=== PATIENT | male | born 1985 | race Caucasian/White ===

== ENCOUNTER → 2017-02-18 | Outpatient (CLI) | payer OTHER ==
[~2017-02-18] MED LIST: DEXT30TA7 PO; DEXTSYP41 PO; PROP80TA2 PO
[2017-02-18 17:16] LABS: BASO % 0.1 %; BASO ABS # 0.01 K/uL (0-0.2); COMPLETE YES; EOS % 2.6 %; HEMATOCRIT 48.9 % (42-52); IG% 0.2 %; LYMPH % 26.1 %; LYMPH ABS # 2.21 K/uL (1.2-3.4); MEAN CELL VOLUME 87.5 fL (80-100); MEAN CORPUSCULAR HEMOGLOBIN 30.2 pg (25-34); MEAN CORPUSCULAR HGB CONC 34.6 g/dl (32-36); MEAN PLATELET VOLUME 8.3 fL (7.4-10.4); MONO % 9.9 %; NEUT % 61.1 %; PLATELET COUNT 255 K/uL (130-400); RED BLOOD COUNT 5.59 M/uL (4.7-6.1); WHITE BLOOD COUNT 8.47 K/uL (4.8-10.8)
[2017-02-18 17:34] LABS: ALT/SGPT 52 U/L (12-78); AST/SGOT 27 U/L (15-37); BLOOD UREA NITROGEN 9 mg/dl (7-18); BUN/CREATININE RATIO 10.4 (10-20); CALCIUM 9.1 mg/dl (8.5-10.1); CARBON DIOXIDE 29 mmol/L (21-32); CHLORIDE 109 mmol/L (98-107); CREATININE 0.83 mg/dl (0.60-1.40); GLUCOSE 88 mg/dl (70-99); POTASSIUM 4.3 mmol/L (3.5-5.1); SODIUM 143 mmol/L (136-145)
[2017-02-18 17:45] LABS: ALB/GLOB RATIO 1.4 (0.9-2); ALKALINE PHOSPHATASE 112 U/L (45-117); THYROID STIMULATING HORMONE 0.646 uIu/ml (0.300-4.500)
== END | disposition home or self-care (01) ==
LOC: C.LABPVFM 15:02
PROVIDERS: ATTEND Neuromusculoskeletal Medicine & OMM
DX: Z00.00 Encounter for general adult medical examination without abnormal findings (principal); R26.89 Other abnormalities of gait and mobility; R47.9 Unspecified speech disturbances

== ENCOUNTER → 2017-02-22 | Outpatient (CLI) | payer OTHER ==
--- NOTE | 2017-02-22 11:44 | DIAGNOSTIC IMAGING REPORT ---
CT OF THE HEAD WITHOUT CONTRAST CLINICAL HISTORY: Speech abnormality. Loss of balance. Gait disturbance. COMPARISON STUDY: Head CT May 03, 2016. CT DOSE: 729.78 mGycm TECHNIQUE: Helical axial images of the head were obtained without IV contrast. Automated exposure control was utilized for the study. A dose lowering technique was utilized adhering to the principles of ALARA. FINDINGS: No acute intracranial hemorrhage, midline shift or mass effect is present. Ventricular system is normal with the exception of mild dilatation of the fourth ventricle. Basilar cisterns are patent. There are no extra-axial collections. There is apparent symmetric hypodensity within the white matter of the bilateral cerebellar hemispheres with volume loss. There are no findings to suggest acute dural sinus thrombosis or acute territorial infarct. There is mild polypoid mucosal thickening of the sinuses. Note is made of trace fluid within the left mastoid air cells. There are no significant calvarial abnormalities. Orbits are unremarkable. IMPRESSION: 1. No acute intracranial findings. 2. Apparent symmetric hypodensities within the white matter of the bilateral cerebellar hemispheres with volume loss. While this could be artifactual, nonspecific cerebellar atrophy may be present and an MRI of the brain could be obtained. Electronically signed by: Deonte Mendoza M.D. 02/22/2017 11:43 AM Dictated Date/Time: 02/22/2017 11:22 AM
== END | disposition home or self-care (01) ==
LOC: C.CTS 11:09
PROVIDERS: ATTEND Neuromusculoskeletal Medicine & OMM
DX: M48.00 Spinal stenosis, site unspecified (principal); R26.9 Unspecified abnormalities of gait and mobility; R26.89 Other abnormalities of gait and mobility; R47.9 Unspecified speech disturbances

== ENCOUNTER → 2017-03-12 | Outpatient (CLI) | payer OTHER ==
[~2017-03-12] MED LIST changes: +GADAVIST IV PRN
--- NOTE | 2017-03-12 19:21 | DIAGNOSTIC IMAGING REPORT ---
BRAIN COMBO CLINICAL HISTORY: R47.9 Speech [id number] Loss of [id number] Abnormal heal COMPARISON STUDY: CT 02/22/2017 TECHNIQUE: Utilizing a 1.5 Nannette magnet and dedicated coil, multiplanar, multiecho imaging of the brain was performed pre and postcontrast administration. IV administration of 6.5 mL of Gadavist contrast was uneventful. FINDINGS: Diffusion-weighted images are negative for an acute ischemic insult. Coronal FLAIR images demonstrate asymmetric increase in deep white matter signal of the cerebellar hemispheres bilaterally. Signal characteristics of the cerebral hemispheres are unremarkable. The optic radiations appear intact. Postcontrast images are considered negative for an enhancing lesion. Internal artery canals are symmetric. Sella and parasellar regions are unremarkable. IMPRESSION: 1. No evidence for an acute ischemic event. 2. Moderate symmetric deep white matter cerebellar atrophy 3. No evidence for abnormal postcontrast enhancement. 4. Remainder the study is negative. 5. Normal internal auditory canals. The above report was generated using voice recognition software. It may contain grammatical, syntax or spelling errors. Electronically signed by: Angel Serrano M.D. 03/12/2017 7:20 PM Dictated Date/Time: 03/12/2017 7:14 PM
== END | disposition home or self-care (01) ==
LOC: C.MRI 17:58
PROVIDERS: ATTEND Neuromusculoskeletal Medicine & OMM
DX: R26.89 Other abnormalities of gait and mobility (principal); R47.9 Unspecified speech disturbances; R93.0 Abnormal findings on diagnostic imaging of skull and head, not elsewhere classified; G31.9 Degenerative disease of nervous system, unspecified

== ENCOUNTER 2018-10-09 17:16 | Inpatient (IN) ==
[2018-10-09 18:58] LABS: Basophils # (auto) 0.02 K/uL (0-0.2); Basophils % (auto) 0.2 %; Eosinophils # (auto) 0.19 K/uL (0-0.5); Eosinophils % (auto) 1.4 %; Hematocrit (blood only) 46.8 % (42-52); Hemoglobin 17.3 g/dL (14.0-18.0); Immature Granulocytes # (auto) 0.03 K/uL (0.00-0.02); Immature Granulocytes % (auto) 0.2 %; Lymphocytes # (auto) 1.46 K/uL (1.2-3.4); Mean Platelet Volume 8.2 fL (7.4-10.4); Monocytes # (auto) 1.25 K/uL (0.11-0.59); Monocytes % (auto) 9.4 %; Neutrophils # (auto) 10.32 K/uL (1.4-6.5); Neutrophils % (auto) 77.8 %; Platelet Count 189 K/uL (130-400); RDW Coefficient of Variation 12.7 % (11.5-14.5); RDW Standard Deviation 39.8 fL (36.4-46.3); Red Blood Count 5.44 M/uL (4.7-6.1); White Blood Count 13.27 K/uL (4.8-10.8)
--- NOTE | 2018-10-09 19:09 | Emergency Department Note ---
Entered by Ravi Zavala acting as a scribe for ED Provider Note CHIEF COMPLAINT: Weakness HISTORY OF PRESENT ILLNESS: The patient is a 32 year old male who presents to the ED with complaints of worsening weakness over the past couple of months, per his father. He also has left foot pain and swelling that is a result of falling down the steps. As a results of these symptoms the patient fell out of bed this morning and had a very difficult time getting dressed. His father also mentioned that he could not stand by himself today. The patient has had speech and balance problems for the past 2 years, however he has been falling more recently. He has seen a neurologist and was referred to Dr. Delatorre - [facility] who said he has issues within his cerebellum and Gu[place]an-[place] syndrome which causes him to have elevated bilirubin levels. The patient also takes 2 Sinemet a day but his father said he has not noticed any improvement since starting the medication. The patient also has been going to physical therapy for the past 9 months and his therapist said he is getting worse. His father notes Dr. Delatorre agreed to see him in October but the patient does need to navigate through a house with 5 steps and does not use a cane. Pt denies LOC, headache, fevers, chills, diaphoresis, visual changes, neck pain, chest pain, breathing difficulties, nausea, vomiting, abdominal pain, back pain, melena, hematochezia, urinary symptoms, numbness, lymphadenopathy, rash, or other complaints. REVIEW OF SYSTEMS: See HPI for pertinent positives and negatives. A total of ten systems were reviewed and were otherwise negative. PMHx/PSHx: Aspergers syndrome, PNA, Cerebellar impairment SOCIAL HISTORY: Patient lives at home. PHYSICAL EXAM: GENERAL: Awake, alert, well-appearing, in no distress HENT: Normocephalic, atraumatic. Oropharynx unremarkable. EYES: Normal conjunctiva. Some scleral icterus. NECK: Inspection normal. Non-tender. Supple. No nuchal rigidity. FROM. No ma sses. RESPIRATORY: Clear to auscultation. No wheezes. No rales. Normal respiratory effort. CARDIAC: Normal rate. Normal rhythm. No murmurs. No rubs. Extremities warm and well perfused. Pulses equal. No JVD. GI: Soft, non-distended. No tenderness to palpation. No rebound or guarding. No masses. RECTAL: Deferred. MUSCULOSKELETAL: Atraumatic. Chest examination reveals no tenderness. The back is symmetrical on inspection without obvious abnormality. There is no CVA tenderness to palpation. No joint edema. LOWER EXTREMITIES: Calves are equal size bilaterally. Mild tenderness to proximal fibula. Swelling and bruising over the lateral dorsal aspect of the left foot. Bruising and tenderness noted around the bases of digits 3,4 and 5. No discoloration. NEURO: Normal sensorium. No sensory deficits noted. Abnormal rapid alternating movements and inability to perform the heel to hamm correctly. Speech was thick but coherent. SKIN: No rash noted. Subtle jaundice noted. EMERGENCY DEPARTMENT COURSE: 1819: Past medical records reviewed. The patient was evaluated in room A12A, and a complete history and physical examination were performed. 1934: I updated the patient and his father on lab results. 1956: I updated the patient and his father on the Xray results. Dr. Derick Leavitt was paged. 2009: I spoke to Dr. Derick Leavitt about the patient's case and he recommended putting him in a boot. 2042: I spoke with the patient and family and they would feel more comfortable having the patient stay in the hospital due to his current condition and not having arrangments at home. 2119: I spoke to Dr. Yadav - [facility] Hospitalist about the patient's case and she is going to accept him for further evaluation. MEDICAL DECISION MAKING: Prior records/ancillary studies reviewed. MRI from 2017 showed moderate cerebellar atrophy. Nursing notes reviewed and agree them. Additional history obtained from patient's father. The patient's history was concerning for progressive weakness, falls, and injury to his left foot today. Differential diagnosis: Etiologies such as sprain, fracture, dislocation, metabolic, infection, hypo/hyperglycemia, electrolyte abnormalities, cardiac sources, intracerebral event, toxicologic, neurologic, as well as others were entertained. Physical examination: As above. ER treatment provided: IV Lock Patient declined analgesia On reassessment the patient felt better. Diagnostics interpretation by me: ECG: Normal without acute ischemic change. No dysrhythmias. The labs revealed an unremarkable CBC and chemistry panel. LFTs reveal bilirubin of 5.8. This was slightly higher than prior values. Imaging studies: CT scan of the head was performed. There was evidence of cerebellar degeneration however no significant changes were noted per radiology. X-ray imaging of the left foot and ankle reveal metatarsal fractures. X-ray imaging of the left knee was negative. No proximal fibular head tenderness or joint line abnormalities. Patient is very unsteady. He is having difficulty standing. I did consult with Dr. Sepulveda of orthopedics. He recommended a fracture boot. I discussed this with the patient initially with plans for discharge. The patient's father was present. Patient has an undiagnosed cerebellar neurologic problem. He has been declining. He has significant difficulty getting up. He is very off balance and now has a fractured foot. I discussed coming into the hospital for PT and OT consultation as well as further management. The patient is not safe to go home at this point time as he cannot use a walker or cane. Consultation: A consultation was placed with the hospitalist. The case was discussed and diagnostics were reviewed. The patient was evaluated in the ER for further treatment. IMPRESSION: Left foot fracture Cerebellar degeneration Ambulatory dysfunction Leukocytosis PLAN: Admitted The scribe's documentation has been prepared under my direction and personally reviewed by me in its entirety. I confirm that the note above accurately reflects all work, treatment, procedures, and medical decision making performed by me. 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 No significant past surgical history Family History Other Cancer Social History Current Living Situation: Family current occupational status: disabled Feels Safe at Home: Yes Smoking Status: Never smoker Hx Alcohol Use: Yes Hx Substance Use: No Results & Data Vital Signs Vital Signs - 24 hr 10/09/18 17:23 10/09/18 19:21 10/09/18 20:55 Temperature 36.8 C Temperature Source Oral Sepsis Recent Fever Within 48 Hours No Sepsis New/Unexplained Change in Mental Status No Sepsis Action Taken by Nursing No Action Required Pulse Rate 90 Pulse Rate [Apical] 78 70 Pulse Rhythm Regular Pulse Rhythm [Apical] Pulse Strength Normal Pulse Strength [Apical] Respiratory Rate 18 16 18 Respiratory Effort / Characteristics Non-Labored Respiratory Depth Normal Respiratory Pattern Regular Blood Pressure 120/75 Blood Pressure [Left Arm] 121/70 118/75 Blood Pressure Mean 90 Blood Pressure Mean [Left Arm] 87 89 Blood Pressure Position Sitting Blood Pressure Position [Left Arm] Pulse Oximetry 98 97 94 Oxygen Delivery Method Room Air Room Air Room Air 10/09/18 22:16 10/09/18 22:46 Temperature 36.4 C L Temperature Source Oral Sepsis Recent Fever Within 48 Hours Sepsis New/Unexplained Change in Mental Status Sepsis Action Taken by Nursing Pulse Rate 80 Pulse Rate [Apical] 83 Pulse Rhythm Pulse Rhythm [Apical] Regular Pulse Strength Pulse Strength [Apical] Normal Respiratory Rate 18 18 Respiratory Effort / Characteristics Non-Labored Respiratory Depth Normal Respiratory Pattern Regular Blood Pressure 118/75 Blood Pressure [Left Arm] 116/78 Blood Pressure Mean Blood Pressure Mean [Left Arm] 90 Blood Pressure Position Blood Pressure Position [Left Arm] Lying Pulse Oximetry 94 98 Oxygen Delivery Method Room Air Room Air Home Medications Current Medication List: was personally reviewed by me Laboratory Data Attestation: I reviewed the patient's lab results. Result diagrams: 10/09/18 18:40 10/09/18 18:40 Lab Results 10/09/18 10/09/18 10/09/18 Range/Units 18:40 18:40 18:40 WBC 13.27 H (4.8-10.8) K/uL RBC 5.44 (4.7-6.1) M/uL Hgb 17.3 (14.0-18.0) g/dL Hct 46.8 (42-52) % MCV 86.0 (80-100) fL MCH 31.8 (25-34) pg MCHC 37.0 H (32-36) g/dL RDW Std Deviation 39.8 (36.4-46.3) fL RDW Coeff of Ian 12.7 (11.5-14.5) % Plt Count 189 (130-400) K/uL MPV 8.2 (7.4-10.4) fL Immature Gran % (Auto) 0.2 % Neut % (Auto) 77.8 % Lymph % (Auto) 11.0 % Smith % (Auto) 9.4 % Eos % (Auto) 1.4 % Baso % (Auto) 0.2 % Immature Gran # (Auto) 0.03 H (0.00-0.02) K/uL Neut # (Auto) 10.32 H (1.4-6.5) K/uL Lymph # (Auto) 1.46 (1.2-3.4) K/uL Smith # (Auto) 1.25 H (0.11-0.59) K/uL Eos # (Auto) 0.19 (0-0.5) K/uL Baso # (Auto) 0.02 (0-0.2) K/uL PT 9.8 (9.0-12.0) Seconds INR 1.0 (0.9-1.1) APTT 23.4 (21.0-31.0) Seconds PTT Ratio 0.9 Sodium 141 (136-145) mmol/L Potassium 3.8 (3.5-5.1) mmol/L Chloride 106 (98-107) mmol/L Carbon Dioxide 30 (21-32) mmol/L Anion Gap 5.0 (3-11) BUN 9 (7-18) mg/dl Creatinine 0.78 (0.6-1.4) mg/dl Est Cr Clr Drug Dosing 123.8 ml/min Est GFR ( Amer) 139.4 Est GFR (Non-Af Amer) 120.3 BUN/Creatinine Ratio 11.9 (10-20) Glucose 110 H (70-99) mg/dl Calcium 9.0 (8.5-10.1) mg/dl Phosphorus (2.5-4.9) mg/dl Magnesium 2.2 (1.8-2.4) mg/dl Total Bilirubin 5.8 H (0.2-1) mg/dl AST 22 (15-37) U/L ALT 50 (12-78) U/L Alkaline Phosphatase 127 H (45-117) U/L Total Creatine Kinase 59 (39-308) U/L Total Protein 7.9 (6.4-8.2) gm/dl Albumin 4.3 (3.4-5.0) gm/dl Globulin 3.6 (2.5-4.0) gm/dl Albumin/Globulin Ratio 1.2 (0.9-2) TSH 0.498 (0.300-4.500) uIu/ml 10/09/18 Range/Units 23:01 WBC (4.8-10.8) K/uL RBC (4.7-6.1) M/uL Hgb (14.0-18.0) g/dL Hct (42-52) % MCV (80-100) fL MCH (25-34) pg MCHC (32-36) g/dL RDW Std Deviation (36.4-46.3) fL RDW Coeff of Ian (11.5-14.5) % Plt Count (130-400) K/uL MPV (7.4-10.4) fL Immature Gran % (Auto) % Neut % (Auto) % Lymph % (Auto) % Smith % (Auto) % Eos % (Auto) % Baso % (Auto) % Immature Gran # (Auto) (0.00-0.02) K/uL Neut # (Auto) (1.4-6.5) K/uL Lymph # (Auto) (1.2-3.4) K/uL Smith # (Auto) (0.11-0.59) K/uL Eos # (Auto) (0-0.5) K/uL Baso # (Auto) (0-0.2) K/uL PT (9.0-12.0) Seconds INR (0.9-1.1) APTT (21.0-31.0) Seconds PTT Ratio Sodium (136-145) mmol/L Potassium (3.5-5.1) mmol/L Chloride (98-107) mmol/L Carbon Dioxide (21-32) mmol/L Anion Gap (3-11) BUN (7-18) mg/dl Creatinine (0.6-1.4) mg/dl Est Cr Clr Drug Dosing ml/min Est GFR ( Amer) Est GFR (Non-Af Amer) BUN/Creatinine Ratio (10-20) Glucose (70-99) mg/dl Calcium (8.5-10.1) mg/dl Phosphorus 3.2 (2.5-4.9) mg/dl Magnesium 2.1 (1.8-2.4) mg/dl Total Bilirubin (0.2-1) mg/dl AST (15-37) U/L ALT (12-78) U/L Alkaline Phosphatase (45-117) U/L Total Creatine Kinase (39-308) U/L Total Protein (6.4-8.2) gm/dl Albumin (3.4-5.0) gm/dl Globulin (2.5-4.0) gm/dl Albumin/Globulin Ratio (0.9-2) TSH (0.300-4.500) uIu/ml Administered Medications Acetaminophen (Tylenol) 650 mg PO Q4H PRN PRN Reason: Pain Stop: 11/08/18 22:43 Last Admin: 10/09/18 23:06 Dose: 650 mg Documented by: [id number] Carbidopa/Levodopa (Sinemet 25/100 Mg) 1 tab PO BID MARCELINO Stop: 11/08/18 22:39 Last Admin: 10/09/18 23:44 Dose: 1 tab Documented by: [id number] Imaging Data Radiologist's Impression: Radiology results as stated below per my review and the radiologist's interpretation: LEFT KNEE 3 VIEWS CLINICAL HISTORY: Fall with left knee injury. FINDINGS: AP, sunrise, and crosstable lateral views of the left knee are obtained. No prior studies are available for comparison at the time of dictation. The skeletal structures are well mineralized. No fracture is seen. The joint spaces are preserved. There is a small joint effusion. Mild prepatellar soft tissue swelling is noted. IMPRESSION: Soft tissue swelling and joint effusion with no acute bony abnormality identified. Electronically signed by: Roberto Williamson M.D. 10/09/2018 7:12 PM LEFT ANKLE 2 VIEWS CLINICAL HISTORY: Fall with left ankle injury. FINDINGS: AP and crosstable lateral views of the left ankle are obtained. No prior studies are available for comparison at the time of dictation. The skeletal structures are well mineralized. No fracture is seen. The ankle mortise is intact. There is no joint effusion. Mild soft tissue swelling is seen along the dorsal aspect of the ankle. IMPRESSION: Soft tissue swelling with no radiographic evidence of left ankle fracture. Electronically signed by: Roberto Williamson M.D. 10/09/2018 7:11 PM LEFT FOOT 2 VIEWS CLINICAL HISTORY: Fall with left foot injury. FINDINGS: AP and crosstable lateral views of the left foot are obtained. No prior studies are available for comparison at the time of dictation. The skeletal structures are well mineralized. There is a minimally angulated fracture through the neck of the fourth metatarsal. There may also be a nondistracted fracture through the proximal shaft of the third metatarsal. No additional fracture is seen. The joint spaces are well-maintained. There is no radiographic evidence of Lisfranc injury. Dorsal soft tissue edema is noted. IMPRESSION: 1. Fourth metatarsal neck fracture as above. 2. Question a nondistracted fracture through the proximal shaft of the third metatarsal. Correlate for point tenderness. Electronically signed by: Roberto Williamson M.D. 10/09/2018 7:[address] SCAN OF THE BRAIN WITHOUT IV CONTRAST CLINICAL HISTORY: Fall. COMPARISON STUDY: CT of the brain dated 02/22/2017. MRI of the brain dated 02/26. TECHNIQUE: Unenhanced axial CT scan of the brain is performed from the vertex to the skull base. A dose lowering technique was utilized adhering to the principles of ALARA. CT DOSE: 614.27 mGy.cm FINDINGS: Brain parenchyma: There is asymmetric atrophy of the cerebellum which is similar to previous. There is no hemorrhage, mass effect, or evidence of acute territorial ischemia by CT criteria. Rossi-white matter differentiation is preserved. No extra-axial fluid collection is seen. Ventricles, sulci, cisterns: Normal in configuration. Intracranial vasculature: The visualized intracranial vasculature at the skull base is normal in appearance. Calvarium: There is no depressed calvarial fracture. Sinuses and mastoids: The visualized paranasal sinuses are clear. The mastoid air cells are well pneumatized. Orbits: The bony orbits are grossly intact. IMPRESSION: No acute intracranial abnormality. Electronically signed by: Roberto Williamson M.D. 10/09/2018 7:36 PM ECG Data Attestation: I personally reviewed and interpreted this ECG as follows: Indication: weakness Rate (beats per minute): 78 Rhythm: normal sinus Findings: + other (Normal intervals ); no PAC, no PVC, no ST depression and no ST elevation Blood Pressure Blood Pressure Findings: Normal blood pressure Discharge Plan Visit Data *Final* Discharge Date/Time: 10/09/18 22:16 Chief Complaint: Leg Weakness, Bilateral Stated Complaint: UNABLE TO WALK, ROLLED DOWN 5 STAIRS ED Provider: Efrem Maldonado Discharge Problem: Foot fracture, left, Cerebellar degeneration, Ambulatory dysfunction, Leukocytosis Patient Disposition: Admitted As Inpatient Discharge Instructions Interventions: ED Discharge Assessment Last Done: 10/09/18 22:16 Discharge Problem: Foot fracture, left Qualifiers: Encounter type: initial encounter Fracture type: closed Qualified Code(s): S92.902A - Unspecified fracture of left foot, initial encounter for closed fracture Leukocytosis Qualifiers: Leukocytosis type: unspecified Qualified Code(s): D72.829 - Elevated white blood cell count, unspecified The scribe's documentation has been prepared under my direction and personally reviewed by me in its entirety. I confirm that the note above accurately reflects all work, treatment, procedures, and medical decision making performed by me.
--- NOTE | 2018-10-09 19:12 | XRay Report ---
LEFT ANKLE 2 VIEWS CLINICAL HISTORY: Fall with left ankle injury. FINDINGS: AP and crosstable lateral views of the left ankle are obtained. No prior studies are availa ble for comparison at the time of dictation. The skeletal structures are well mineralized. No fractur e is seen. The ankle mortise is intact. There is no joint effusion. Mild soft tissue swelling is seen along the dorsal aspect of the ankle. IMPRESSION: Soft tissue swelling with no radiographic evidence of left ankle fracture. Electronically signed by: Roberto Williamson M.D. 10/09/2018 7:11 PM
--- NOTE | 2018-10-09 19:14 | XRay Report ---
LEFT KNEE 3 VIEWS CLINICAL HISTORY: Fall with left knee injury. FINDINGS: AP, sunrise, and crosstable lateral views of the left knee are obtained. No prior studies a re available for comparison at the time of dictation. The skeletal structures are well mineralized. N o fracture is seen. The joint spaces are preserved. There is a small joint effusion. Mild prepatellar soft tissue swelling is noted. IMPRESSION: Soft tissue swelling and joint effusion with no acute bony abnormality identified. Electronically signed by: Roberto Williamson M.D. 10/09/2018 7:12 PM
--- NOTE | 2018-10-09 19:18 | XRay Report ---
LEFT FOOT 2 VIEWS CLINICAL HISTORY: Fall with left foot injury. FINDINGS: AP and crosstable lateral views of the left foot are obtained. No prior studies are availab le for comparison at the time of dictation. The skeletal structures are well mineralized. There is a minimally angulated fracture through the neck of the fourth metatarsal. There may also be a nondistra cted fracture through the proximal shaft of the third metatarsal. No additional fracture is seen. The joint spaces are well-maintained. There is no radiographic evidence of Lisfranc injury. Dorsal soft tissue edema is noted. IMPRESSION: 1. Fourth metatarsal neck fracture as above. 2. Question a nondistracted fracture through the proximal shaft of the third metatarsal. Correlate fo r point tenderness. Electronically signed by: Roberto Williamson M.D. 10/09/2018 7:17 PM
[2018-10-09 19:28] LABS: Albumin Globulin Ratio 1.2 (0.9-2); Albumin Level 4.3 gm/dl (3.4-5.0); BUN Creatinine Ratio 11.9 (10-20); Bilirubin,Total 5.8 mg/dl (0.2-1); Creatinine Clr Calc Pharmacy 123.8 ml/min; Est GFR (African American) 139.4; Est GFR (Non-African American) 120.3; Globulin 3.6 gm/dl (2.5-4.0); Magnesium 2.2 mg/dl (1.8-2.4); Potassium 3.8 mmol/L (3.5-5.1); Total Protein 7.9 gm/dl (6.4-8.2)
--- NOTE | 2018-10-09 19:37 | CT Scan Report ---
CT SCAN OF THE BRAIN WITHOUT IV CONTRAST CLINICAL HISTORY: Fall. COMPARISON STUDY: CT of the brain dated 02/22/2017. MRI of the brain dated 03/12/2017. TECHNIQUE: Unenhanced axial CT scan of the brain is performed from the vertex to the skull base. A d ose lowering technique was utilized adhering to the principles of ALARA. CT DOSE: 614.27 mGy.cm FINDINGS: Brain parenchyma: There is asymmetric atrophy of the cerebellum which is similar to previous. There i s no hemorrhage, mass effect, or evidence of acute territorial ischemia by CT criteria. Rossi-white ma tter differentiation is preserved. No extra-axial fluid collection is seen. Ventricles, sulci, cisterns: Normal in configuration. Intracranial vasculature: The visualized intracranial vasculature at the skull base is normal in appe arance. Calvarium: There is no depressed calvarial fracture. Sinuses and mastoids: The visualized paranasal sinuses are clear. The mastoid air cells are well pneu matized. Orbits: The bony orbits are grossly intact. IMPRESSION: No acute intracranial abnormality. Electronically signed by: Roberto Williamson M.D. 10/09/2018 7:36 PM
--- NOTE | 2018-10-09 22:21 | History & Physical Report ---
Date of Service October 09, 2018 Assessment & Plan (1) Foot fracture, left: s/p mechanical fall in setting of ambulatory dysfunction from cerebellar ataxia -Place fracture boot -Patient is to followup with Orthopedics next week -Pain control as needed Present on Admission?: Yes (2) Ambulatory dysfunction: Patient unable to ambulate without assistance. Per father, his gait has become more ataxic over the past few months. Patient with diagnosis of cerebellar ataxia, specific etiology yet to be diagnosed. CT Head with cerebellar atrophy similar to prior imaging. Progressive symptoms. -Fall precautions -PT/OT evaluation -Consider Neurology consultation re: additional workup for ataxia. Patient is waiting to hear from [facility]. He was to be seen at [facility] as well but the appointment was cancelled. -Case Management to assist with placement and referrals (3) Cerebellar degeneration: As above. Patient is waiting for more definitive diagnosis. Per discussion with patient's father this process has been quite lengthy and arduous. -Neuro assistance as above -Case management assistance as above (4) Asperger's syndrome: Chronic. Patient with effective communication and understanding. (5) Leukocytosis: WBC=13.27. Afebrile. No overt evidence of infection. Most likely reactive in setting of recent fall/trauma -CBC in AM F/E/N- Heplock. Monitor electrolytes and replete as needed. Regular diet as tolerated with aspiration precautions Ppx - Lovenox Code - Full Dispo - [facility], PT/OT eval, placement if indicated History of Present Illness Chief Complaint: Mechanical fall Primary Care Provider: Enmanuel Lucio DO Patient is a 32yo C male with history of Asberger's syndrome/Autism which was diagnosed as a child, Gilbert's syndrome. 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 He has poor balance, slurred speech. He was seen in the past by [facility] (Dr. Delatorre at [place]) and has been referred to [facility] and [facility] to complete diagnostic workup. Patient's father states there has been much difficulty with obtaining appointments and insurance issues. He has not had genetic testing performed as of yet. He presents this evening after a mechanical fall at home. He was walking down the stairs and tripped. He fell down 6 stairs. No LOC or head trauma. He was unable to get up secondary to weakness and poor coordination. His father was home at the time and helped him get up. Patient complaining of left foot pain after the fall as well as knee pain. He goes to PT q weekly. Therapists have commented that over the past few months his gait has become more ataxic. His father reports that he falls frequently at home. He is presently taking Sinimet for parkinsonism and propranolol for tremor. Allergies Allergy/AdvReac Type Severity Reaction Status Date / Time No Known Allergies Allergy Unknown Verified 10/09/18 18:32 Home Medications Home Medications Medication Instructions Recorded Confirmed Type carbidopa-levodopa 1 tab PO UD 10/09/18 10/09/18 History propranolol 80 mg PO QAM 10/09/18 10/09/18 History Past Med/Surg History Medical History Asperger syndrome Cerebellar ataxia [place] disease No significant past surgical history Family History Other Cancer Social History Current Living Situation: Family current occupational status: disabled Feels Safe at Home: Yes Smoking Status: Never smoker Hx Alcohol Use: Yes Hx Substance Use: No Review of Systems All systems reviewed & are unremarkable except as noted in HPI & below Physical Exam Vital Signs (Past 24 Hours): Last Vital Signs Temp 36.8 C 10/09/18 17:23 Pulse 70 10/09/18 20:55 Resp 18 10/09/18 20:55 BP 118/75 10/09/18 20:55 Pulse Ox 94 10/09/18 20:55 Physical Exam: General: patient resting comfortably, NAD, non-toxic in appearance, answers some questions but defers most to his father, speech garbled Skin: warm, dry, intact, no rashes or lesions, pale nail beds HEENT: NC/AT, PERRL, EOMI with nystagmus, icteric sclera, conjunctiva without injection, external ear normal to inspection and nontender, nares patent, moist mucus membranes, dentition intact, no oropharyngeal lesions, neck supple, trachea midline, no LAD, no thyromegaly, no JVD Heart: +S1/S2, regular, no m/r/g Lungs: equal air entry bilaterally, no rales/rhonchi/wheezes Abd: +BS, soft, NT/ND, no masses/organomegaly/ascites Ext: warm, 2+ pulses in UE/LE bilaterally, no clubbing/cyanosis or edema, left foot in boot Neuro: AA&O, speech garbled, no facial droop, MS 5/5 in UE, weakness in bilateral LE with poor coordination, tremor with finger to nose, unable to perform heel to hamm, unsteady gait requiring assistance to ambulate Results & Data Laboratory Results Lab Results 10/09/18 10/09/18 Range/Units 18:40 18:40 WBC 13.27 H (4.8-10.8) K/uL RBC 5.44 (4.7-6.1) M/uL Hgb 17.3 (14.0-18.0) g/dL Hct 46.8 (42-52) % MCV 86.0 (80-100) fL MCH 31.8 (25-34) pg MCHC 37.0 H (32-36) g/dL RDW Std Deviation 39.8 (36.4-46.3) fL RDW Coeff of Ian 12.7 (11.5-14.5) % Plt Count 189 (130-400) K/uL MPV 8.2 (7.4-10.4) fL Immature Gran % (Auto) 0.2 % Neut % (Auto) 77.8 % Lymph % (Auto) 11.0 % [place] % (Auto) 9.4 % Eos % (Auto) 1.4 % Baso % (Auto) 0.2 % Immature Gran # (Auto) 0.03 H (0.00-0.02) K/uL Neut # (Auto) 10.32 H (1.4-6.5) K/uL Lymph # (Auto) 1.46 (1.2-3.4) K/uL [place] # (Auto) 1.25 H (0.11-0.59) K/uL Eos # (Auto) 0.19 (0-0.5) K/uL Baso # (Auto) 0.02 (0-0.2) K/uL Sodium 141 (136-145) mmol/L Potassium 3.8 (3.5-5.1) mmol/L Chloride 106 (98-107) mmol/L Carbon Dioxide 30 (21-32) mmol/L Anion Gap 5.0 (3-11) BUN 9 (7-18) mg/dl Creatinine 0.78 (0.6-1.4) mg/dl Est Cr Clr Drug Dosing 123.8 ml/min Est GFR ( Amer) 139.4 Est GFR (Non-Af Amer) 120.3 BUN/Creatinine Ratio 11.9 (10-20) Glucose 110 H (70-99) mg/dl Calcium 9.0 (8.5-10.1) mg/dl Magnesium 2.2 (1.8-2.4) mg/dl Total Bilirubin 5.8 H (0.2-1) mg/dl AST 22 (15-37) U/L ALT 50 (12-78) U/L Alkaline Phosphatase 127 H (45-117) U/L Total Creatine Kinase 59 (39-308) U/L Total Protein 7.9 (6.4-8.2) gm/dl Albumin 4.3 (3.4-5.0) gm/dl Globulin 3.6 (2.5-4.0) gm/dl Albumin/Globulin Ratio 1.2 (0.9-2) TSH 0.498 (0.300-4.500) uIu/ml Diagnostic Findings LEFT ANKLE 2 VIEWS CLINICAL HISTORY: Fall with left ankle injury. FINDINGS: AP and crosstable lateral views of the left ankle are obtained. No prior studies are available for comparison at the time of dictation. The skeletal structures are well mineralized. No fracture is seen. The ankle mortise is intact. There is no joint effusion. Mild soft tissue swelling is seen along the dorsal aspect of the ankle. IMPRESSION: Soft tissue swelling with no radiographic evidence of left ankle fracture. Electronically signed by: Roberto Williamson M.D. 10/09/2018 7:11 PM Dictated: 10/09/181909 Transcribed: 10/09/181909 ------ LEFT FOOT 2 VIEWS CLINICAL HISTORY: Fall with left foot injury. FINDINGS: AP and crosstable lateral views of the left foot are obtained. No prior studies are available for comparison at the time of dictation. The skelet al structures are well mineralized. There is a minimally angulated fracture through the neck of the fourth metatarsal. There may also be a nondistracted fracture through the proximal shaft of the third metatarsal. No additional fracture is seen. The joint spaces are well-maintained. There is no radiographic evidence of Lisfranc injury. Dorsal soft tissue edema is noted. IMPRESSION: 1. Fourth metatarsal neck fracture as above. 2. Question a nondistracted fracture through the proximal shaft of the third metatarsal. Correlate for point tenderness. Electronically signed by: Roberto Williamson M.D. 10/09/2018 7:17 PM Dictated: 10/09/181913 Transcribed: 10/09/181913 CT SCAN OF THE BRAIN WITHOUT IV CONTRAST CLINICAL HISTORY: Fall. COMPARISON STUDY: CT of the brain dated 02/22/2017. MRI of the brain dated 03/12/2017. TECHNIQUE: Unenhanced axial CT scan of the brain is performed from the vertex to the skull base. A dose lowering technique was utilized adhering to the principles of ALARA. CT DOSE: 614.27 mGy.cm FINDINGS: Brain parenchyma: There is asymmetric atrophy of the cerebellum which is similar to previous. There is no hemorrhage, mass effect, or evidence of acute territori al ischemia by CT criteria. Rossi-white matter differentiation is preserved. No extra-axial fluid collection is seen. Ventricles, sulci, cisterns: Normal in configuration. Intracranial vasculature: The visualized intracranial vasculature at the skull base is normal in appearance. Calvarium: There is no depressed calvarial fracture. Sinuses and mastoids: The visualized paranasal sinuses are clear. The mastoid air cells are well pneumatized. Orbits: The bony orbits are grossly intact. IMPRESSION: No acute intracranial abnormality. Electronically signed by: Roberto Williamson M.D. 10/09/2018 7:36 PM Dictated: 10/09/181932 Transcribed: 10/09/181932 LEFT KNEE 3 VIEWS CLINICAL HISTORY: Fall with left knee injury. FINDINGS: AP, sunrise, and crosstable lateral views of the left knee are obtained. No prior studies are available for comparison at the time of dictation. The skeletal structures are well mineralized. No fracture is seen. The joint spaces are preserved. There is a small joint effusion. Mild prepatellar soft tissue swelling is noted. IMPRESSION: Soft tissue swelling and joint effusion with no acute bony abnormality identified. Electronically signed by: Roberto Williamson M.D. 10/09/2018 7:12 PM Dictated: 10/09/181910 Transcribed: 10/09/181910 ECG Additional Comments: NSR at 78, normal axis and intervals, no ischemic changes Code Status & VTE Plan Code Status full VTE Prophylaxis Plan VTE Prophylaxis will be ordered: Yes Critical Care Time Critical Care Time: No (1) Foot fracture, left Encounter type: initial encounter Fracture type: closed Qualified Code(s): S92.902A - Unspecified fracture of left foot, initial encounter for closed fracture (2) Leukocytosis Leukocytosis type: unspecified Qualified Code(s): D72.829 - Elevated white blood cell count, unspecified
[2018-10-09] MEDS: ACETAMINOPHEN 325 MG TAB PO PRN (23:06)
[2018-10-09 23:25] LABS: Partial Thromboplastin Ratio 0.9; Partial Thromboplastin Time 23.4 Seconds (21.0-31.0); Prothrombin Time 9.8 Seconds (9.0-12.0)
[2018-10-09 23:43] LABS: Magnesium 2.1 mg/dl (1.8-2.4); Phosphorus 3.2 mg/dl (2.5-4.9)
[2018-10-09] MEDS: CARBIDOPA/LEVODOPA 25/100MG TAB PO SCH (23:44)
[2018-10-10] MEDS ORDERED: INFLUENZA ADMINISTRATION CHARGE ONE (08:00)
[2018-10-10] MEDS ORDERED: INFLUENZA VIRUS QUAD VACCINE 0.5 ML SYR IM ONE (08:00)
[2018-10-10 08:15] LABS: Basophils # (auto) 0.01 K/uL (0-0.2); Basophils % (auto) 0.1 %; Eosinophils # (auto) 0.33 K/uL (0-0.5); Eosinophils % (auto) 3.1 %; Hematocrit (blood only) 42.9 % (42-52); Hemoglobin 15.3 g/dL (14.0-18.0); Immature Granulocytes # (auto) 0.01 K/uL (0.00-0.02); Immature Granulocytes % (auto) 0.1 %; Lymphocytes # (auto) 2.41 K/uL (1.2-3.4); Lymphocytes % (auto) 22.8 %; Mean Corpuscular Hgb Conc 35.7 g/dL (32-36); Mean Corpuscular Volume 86.5 fL (80-100); Mean Platelet Volume 8.3 fL (7.4-10.4); Monocytes # (auto) 1.29 K/uL (0.11-0.59); Monocytes % (auto) 12.2 %; Neutrophils # (auto) 6.54 K/uL (1.4-6.5); Neutrophils % (auto) 61.7 %; Platelet Count 178 K/uL (130-400); RDW Coefficient of Variation 12.7 % (11.5-14.5); RDW Standard Deviation 40.8 fL (36.4-46.3); Red Blood Count 4.96 M/uL (4.7-6.1); White Blood Count 10.59 K/uL (4.8-10.8)
[2018-10-10] MEDS: CARBIDOPA/LEVODOPA 25/100MG TAB PO SCH ×2 (08:17→20:55)
[2018-10-10] MEDS: PROPRANOLOL HCL LA 80 MG CAPCR PO SCH (08:17)
[2018-10-10] MEDS: ENOXAPARIN INJ 40 MG/0.4 ML SYR SQ SCH (08:18)
[2018-10-10 08:52] LABS: BUN Creatinine Ratio 14.1 (10-20); Calcium 8.4 mg/dl (8.5-10.1); Est GFR (African American) 145.7; Est GFR (Non-African American) 125.8; Potassium 3.4 mmol/L (3.5-5.1)
--- NOTE | 2018-10-10 09:53 | Neurology Consultation ---
Date of Consultation October 10, 2018 Assessment & Plan (1) Cerebellar degeneration: Patient has chronic progressive ataxia of the limbs and gait with dysarthria. On exam he also has hyper reflexia and upgoing toes bilaterally. He has weakness and some atrophy distally in the limbs the but symmetrically. Previous MRI in 2017 showed white matter problems in the cerebellum with atrophy. No one is ever looked at the cervical spine with an MRI to my knowledge (although it could been done at a different institution). With the hyper reflexia and upgoing toes I cannot exclude a cervical cord compression resulting in progressive gait the problems. 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 This is likely genetic. To date, no acquired conditions have been seen any does not have Carlito's disease or other obvious toxic/metabolic/inflammatory disease. Patient has autism spectrum/Asperger's and some mental issues. I do not know if this is progressive but I have no family member to verify this with. Recommendations: 1. Consider orthopedic consultation for his foot fracture. 2. Physical , speech, and occupational therapy consult may be beneficial. In addition, I stay at [facility] may be beneficial for this patient. 3. I would consider MRI of the cervical spine to evaluate for cord compression versus cord lesions/atrophy the . 4. He might benefit from an MRI of the brain to compared to the previous MRI of February 2017. 5. There is no medication treatment I can give for his neurologic problems. 6. I recommend he continue to follow-up at the [facility] or [facility] if he has appointments there for further delineation of his exact syndrome. Overall, I spent a total of 60 minutes with this case including review of records, review of MRI films, direct evaluation the patient at bedside, and discussion of the case with the patient, and Dr. Canales, including differential diagnosis and treatment options. History of Present Illness Reason for Consultation: Patient is a 32-year-old, who I was asked to see the request of Dr. Yadav, for neurologic consultation regarding ataxic gait and falling. Requesting Physician: Dr. Yadav Attending Physician: Logan Canales History of Present Illness Patient has a history of autism spectrum/Asperger disorder and Gilbert's syndrome. For several years now he has had gait issues and falling. In February 2017, an MRI of the brain showed moderate cerebellar hemispheric white matter changes and mild cerebellar atrophy bilaterally. There was no other small vessel ischemia or other cerebral abnormalities. I reviewed this film. He did have a CT scan of his cervical spine in October 2013 for falling and there was no fracture seen. Patient saw Dr. Stone in March of 2017. 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 Ophthalmologic examination revealed no Keisha-Bal rings. The patient was then sent for further consultation add [facility] to get a more definitive diagnosis. Patient was seen at [facility] but he is also pending appointments at the [facility] and the [facility] for his ataxia and cerebellar atrophy. Genetic tests are pending. Extensive laboratory studies were unremarkable including CBC, Chem profile, sed rate, RPR, Lyme antibody titer, CMV titers, ANOOP level, 24 hour urine for heavy metals, HIV, copper levels, ceruloplasmin levels, zinc levels, B12, B1, MEGHAN, Anca, and vitamin E. To my knowledge she has never had an MRI of the cervical spine. Patient's gait is been worse recently and he fell down steps yesterday fracturing his 4th metatarsal neck in the left foot. There is a questionable fracture in the 3rd metatarsal as well. He has pain and swelling in the foot and ankle. He denies headache pain, spine or other pain, vision issues, fatigue, incontinence, or any numbness or tingling. Allergies Allergy/AdvReac Type Severity Reaction Status Date / Time No Known Allergies Allergy Unknown Verified 10/09/18 18:32 Home Medications Home Medications Medication Instructions Recorded Confirmed Type carbidopa-levodopa 1 tab PO UD 10/09/18 10/09/18 History propranolol 80 mg PO QAM 10/09/18 10/09/18 History Patient History Family History Mother No problems noted. Father No problems noted. 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 Beliefs That Will Affect Care: None Current Living Situation: Parent current occupational status: disabled Other Information That Helps Us Care for You: No Feels Safe at Home: Yes Safety Concerns: Feels Safe At This Time Smoking Status: Never smoker Hx Alcohol Use: Yes Hx Substance Use: No Review of Systems Constitutional: no fever and no fatigue Eyes: no diplopia, no eye pain and no worsening vision Ear, Nose, Mouth, Throat: no ear pain, no tinnitus, no hearing loss and no dysphagia Respiratory: no cough and no dyspnea Cardiovascular: no chest pain, no dyspnea and no palpitations Gastrointestinal: no abdominal pain, no nausea and no vomiting Genitourinary (Male): no dysuria, no urinary frequency and no urinary incontinence Musculoskeletal: + problem reported (Left foot and ankle pain and swelling); no back pain, no neck pain, no radicular pain, no myalgia, no muscle weakness and no muscle atrophy Integumentary: no rash and no lesions Neurologic: + gait abnormality, + abnormal movements and + abnormal speech; no falls, no localized weakness, no generalized weakness, no tingling, no numbness, no tremor(s), no dizziness, no headache(s), no behavioral changes, no confusion and no memory loss Psychiatric: no depression, no abnormal sleep pattern, no anxiety, no difficulty concentrating, no confusion and no hallucinations Endocrine: no fatigue and no flushing Hematologic / Lymphatic: no easy bleeding and no easy bruising Allergy / Immunological: no urticaria Physical Exam Vital Signs (Past 24 Hours): Last Vital Signs Temp 36.7 C 10/10/18 08:40 Pulse 74 10/10/18 08:40 Resp 18 10/10/18 08:40 BP 115/77 10/10/18 08:40 Pulse Ox 98 10/10/18 08:40 Physical Exam: The patient is right-handed. The patient is awake, alert, and attentive. Speech is dysarthric but there is no obvious aphasia. Mentation and thought processes are reasonable but I believe he has some memory issues. Mood is normal and affect is appropriate. He is oriented to person place. The discs are sharp with positive venous pulsations bilaterally. There are no exudates, hemorrhages, or blood vessel changes seen. Pupils are 4 mm bilaterally and reactive to light. Extraocular eye muscles are intact without nystagmus. Visual acuity and visual burci[place] seem normal grossly to confrontation. There are no deficits to sensation in the face in all 3 distributions of the fi fth cranial nerve bilaterally. Corneal reflexes are positive bilaterally. Facial strength and symmetry was normal bilaterally. Hearing seems intact grossly to voice and finger rub bilaterally. Palate moves well without asymmetry. There is normal sternocleidomastoid and trapezius (shoulder shrug) strength bilaterally. Tongue is midline with good strength bilaterally. Neck has a full range of motion without discomfort. There are no cervical bruits bilaterally. There are no cranial or ocular bruits. Heart is without murmur. There is a regular rhythm and rate. Cervical, thoracic, and lumbar spine are nontender to palpation. Gait is not tested (patient refuses) and stance sitting on the bed is rather poor any leans to the left. With outstretched arms there is no drift. There are no resting, postural, or action tremors. There is ataxia with finger to nose testing bilateral. There is decrease facility in the hands. No other abnormal involuntary movements are noted. Motor strength is 5/5 in the arms proximally with encouragement including deltoids, biceps, triceps, and forearm muscles. He has a little atrophy in the right greater than left intrinsic muscles of the hands and is 4/5 in paramedic rn and intrinsic muscles right greater than left side. The leg strength is close to 5/5 diffusely except distally seems 4/5. The limbs have decreased tone diffusely. They are not spastic. The distal muscles are thin more so than the proximal muscles. no myotonia to percussion, and no fasciculations seen. Sensory examination is intact to touch and pin throughout all 4 limbs diffusely. Reflexes are 3/4 in the biceps, triceps, brachioradialis, quadriceps, and Achilles tendons bilaterally. Toes are upgoing with plantar stimulation bilaterally. Peripheral pulses are present and of normal quality distally in all 4 limbs. There is no peripheral edema noted in the limbs.
[2018-10-10] MEDS: ACETAMINOPHEN 325 MG TAB PO PRN ×2 (12:17→20:59)
--- NOTE | 2018-10-10 17:30 | CT Scan Report ---
CT foot LT wo con CT DOSE: 223.34 mGy.cm CLINICAL HISTORY: Pain status post trauma TECHNIQUE: Helical images were acquired in the transverse plane. Sagittal and coronal reformatted yumiko ges were acquired. A dose lowering technique was utilized adhering to the principles of ALARA. 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 There is acute intra-articular fracture involving the proximal phalanx of the fifth toe. There is a n ondisplaced transverse fracture involving the proximal metadiaphyseal portion of the third metatarsal . There is an acute nondisplaced fracture of the fourth metatarsal tarsal neck. There is a nondisplac ed fracture involving the lateral aspect of the medial cuneiform. There is no CT evidence of a [place] subluxation. IMPRESSION: 1. Acute intra-articular fracture involving the proximal phalanx the fifth toe 2. Nondisplaced transverse fracture involving the proximal third metatarsal 3. Fourth metatarsal neck fracture 4. Nondisplaced fracture of the lateral aspect of the medial cuneiform 5. Talo calcaneal fibrous coalition. Electronically signed by: Jeffrey Ramirez M.D. 10/10/2018 5:29 PM
--- NOTE | 2018-10-10 22:08 | Magnetic Resonance Report ---
MR cervical spine wo con CLINICAL HISTORY: hyperreflexia/ ambulatory dysfunction TECHNIQUE: Sagittal and axial T1, T2 and STIR images were obtained. COMPARISON STUDY: No previous studies for comparison. There are no suspicious areas of marrow replacement. No intrinsic cervical cord lesions are visualize d. C2-3: There is no evidence of disc bulge or focal herniation. There is no spinal or foraminal stenosi s. C3-4: There is no evidence of disc bulge or focal herniation. There is no spinal or foraminal stenosi s. C4-5: There are no disc bulges or focal herniations. There is no spinal or foraminal stenosis. C5-6 :There are no disc bulges or focal herniations. There is no spinal or foraminal stenosis. C6-7: There is a very minimal disc bulge. There is no significant spinal or foraminal stenosis. C7-T1: There is no evidence of disc bulge or focal herniation. There is no evidence of spinal or fora mallika stenosis. IMPRESSION: 1. No significant abnormalities. No disc herniations identified. No evidence of spinal or foraminal s tenosis. No cord lesions are visualized. Electronically signed by: Jeffrey Ramirez M.D. 10/10/2018 10:06 PM
--- NOTE | 2018-10-10 23:49 | Hospitalist Progress Note ---
Date of Service October 10, 2018 Assessment & Plan (1) Foot fracture, left: s/p mechanical fall in setting of ambulatory dysfunction from cerebellar ataxia -Placed fracture boot -Consulted ortho since patient is in the hospital for further recommendation -Pain control as needed (2) Ambulatory dysfunction: Patient unable to ambulate without assistance. Per father, his gait has become more ataxic over the past few months. Patient with diagnosis of cerebellar ataxia, specific etiology yet to be diagnosed. CT Head with cerebellar atrophy similar to prior imaging. Progressive symptoms. -Fall precautions -PT/OT evaluation -Consider Neurology consultation re: additional workup for ataxia. Patient is waiting to hear from [facility]. He was to be seen at [facility] as well but the appointment was cancelled. -Case Management to assist with placement and referrals On 10/10 discussed with Neurology, will obtain MRI of c spine. Family states patient will be able to tolerate MRI without any sedating medicine. (3) Cerebellar degeneration: As above. Patient is waiting for more definitive diagnosis. Per discussion with patient's father this process has been quite lengthy and arduous. -Neuro assistance as above -Case management assistance as above (4) Asperger's syndrome: Chronic. Patient with effective communication and understanding. (5) Leukocytosis: WBC=13.27. Afebrile. No overt evidence of infection. Most likely reactive in setting of recent fall/trauma -CBC in AM F/E/N- Heplock. Monitor electrolytes and replete as needed. Regular diet as tolerated with aspiration precautions Ppx - Lovenox Code - Full Dispo - MedSurge, PT/OT eval, placement if indicated Awaiting PT/OT. Spent 25 minutes in management of patient, included discussion with family, chart review, and discussion with consultants. Subjective Patient reports no new symptoms. His pain is more tolerable today than yesterday. Patient's family is at bedside as well. Asking when patient can be discharged. Review of Systems All systems reviewed & are unremarkable except as noted in HPI & below Physical Exam Vital Signs (Past 24 Hours): Last Vital Signs Temp 36.3 C L 10/10/18 23:01 Pulse 71 10/10/18 23:01 Resp 16 10/10/18 23:01 BP 104/68 10/10/18 23:01 Pulse Ox 97 10/10/18 23:01 Physical Exam: General: patient resting comfortably, NAD, non-toxic in appearance, answers some questions but defers most to his father Skin: dry, intact, no rashes or lesions, pale nail beds HEENT: NC/AT, PERRL, EOMI with nystagmus, icteric sclera, conjunctiva without injection, external ear normal to inspection and nontender, nares patent, moist mucus membranes, dentition intact, no oropharyngeal lesions, neck supple, trachea midline, no LAD, no thyromegaly, no JVD Lungs: not using accesory muscles to breath Abd: Nondistended. Ext: no clubbing/cyanosis or edema, left foot in boot Neuro: AA&O, speech garbled, (1) Leukocytosis Leukocytosis type: unspecified Qualified Code(s): D72.829 - Elevated white blood cell count, unspecified (2) Foot fracture, left Encounter type: initial encounter Fracture type: closed Qualified Code(s): S92.902A - Unspecified fracture of left foot, initial encounter for closed fracture
--- NOTE | 2018-10-11 02:34 | Consultation Report ---
DATE OF CONSULTATION: 10/10/2018 HISTORY OF PRESENT ILLNESS: This is a 32-year-old gentleman seen at request of Dr. Yvonne Yadav for left foot pain. Apparently, this is a 32-year-old gentleman with a history of Asperger's and autism who was at home in his usual state of health. He has chronic ataxia and difficulty with weightbearing and balance. He has had multiple falls in the past. He had a recent fall and had difficulty with weightbearing and walking. He was admitted to the hospital. Orthopedics was consulted. The patient has pain related to his left foot. He has been involved with physical therapy at [facility] and [facility] on a regular and recurrent basis. He has chronic progressive ataxia and via neurological consultation performed in [place], the patient was scheduled to be seen at [facility] for neurology and also to be seen at the [facility] for definitive diagnosis of his progressive ataxia. This has not occurred as of this date. PAST MEDICAL HISTORY: Asperger's, autism, Gilbert syndrome, cerebellar ataxia with degeneration, poor balance and slurred speech. PAST SURGICAL HISTORY: Denies. ALLERGIES: No known drug allergies. MEDICATIONS: Carbidopa levodopa 1 tablet p.o. daily and propranolol 80 mg p.o. q.a.m. SOCIAL HISTORY: He denies tobacco, alcohol or drug use. He lives at home with his family. His parents are . PHYSICAL EXAMINATION: GENERAL: This is a 32-year-old gentleman who is well nourished, well hydrated, in no acute distress. He is lying comfortably in his hospital room bed with his mother at the bedside. He is alert and oriented to place and person. He is unaware of the time. He has some response to questions; however, then defers to his mother in other regards. He has a somewhat dysarthric slurred speech. EXTREMITIES: Examination of the feet demonstrates left foot swollen compared to the right. He has bruising and ecchymosis of the left forefoot particularly the third, fourth and fifth metatarsophalangeal joints. He has severe tenderness to palpation at the fourth metatarsal neck and the third metatarsal base. He also has tenderness over the distal fifth metatarsal and tenderness over the second metatarsal. Range of motion is symmetric with the opposite uninvolved foot and ankle. Dorsalis pedis and posterior pulses 2/4. Feet are warm. Slight hair growth is noted bilaterally. Radiographs of the left foot and ankle reviewed demonstrate fracture of the distal fourth metatarsal neck and fracture of the proximal third metatarsal. No other obvious fractures noted. There appears to be no widening of Lisfranc joint. There seems to be trace of osteopenia. LABORATORY DATA: Reviewed, with leukocytosis. IMPRESSION: Left foot proximal third and distal fourth metatarsal fractures without significant displacement. Cerebellar ataxia, progressive with a history of Asperger's and autism. RECOMMENDATIONS: Ice to the left foot, elevation on 1-2 pillows to help with edema. Knee high LAURENCE hose stockings bilaterally while in bed. May partially weightbear with a walker and assist x1. CT scan of the left foot to assess for occult fractures of the second metatarsal and perhaps the fifth proximal phalanx. The patient may weightbear with a low tide walking boot for transfers. This is a nonoperative candidate at this time. We will follow with you. Thank you for the opportunity to consult in the care of this patient.
[2018-10-11] MEDS: CARBIDOPA/LEVODOPA 25/100MG TAB PO SCH ×2 (08:26→21:17)
[2018-10-11] MEDS: PROPRANOLOL HCL LA 80 MG CAPCR PO SCH (08:26)
[2018-10-11] MEDS: ENOXAPARIN INJ 40 MG/0.4 ML SYR SQ SCH (08:26)
[2018-10-11] MEDS: ACETAMINOPHEN 325 MG TAB PO PRN ×2 (08:27→18:31)
--- NOTE | 2018-10-11 09:34 | Neurology Progress Note ---
Date of Service October 11, 2018 Assessment & Plan (1) Cerebellar degeneration: Patient has chronic progressive ataxia of the limbs and gait with dysarthria. On exam he also has hyper reflexia and upgoing toes bilaterally. He has weakness and some atrophy distally in the limbs the but symmetrically. Previous MRI in 2017 showed white matter problems in the cerebellum with atrophy. Cervical spine MRI was largely unremarkable with no cord impingement, cord lesions or significant cord atrophy. 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 Extensive evaluation in the past has revealed no vitamin-D deficiency or Carlito's disease. Patient has autism spectrum/Asperger's and some mental issues. I do not know if this is progressive but I have no family member to verify this with. Recommendations: 1. Orthopedics has made recommendations for his left foot fracture. 2. Physical , speech, and occupational therapy consult may be beneficial. In addition, I stay at [facility] may be beneficial for this patient. 3. He might benefit from an MRI of the brain to compared to the previous study of February 2017 but this could be done as an outpatient. . 4. I have no other testing to do neurologically at this time. He needs genetic testing but his insurance will likely not pay for it. 5. There is no medication treatment I can give for his neurologic problems. 6. We could see him in the office for follow-up and help expedite, if possible, his visit to the [facility]. Overall, I spent a total of 40 minutes with this case including review of records, review of MRI films, direct evaluation the patient at bedside, and discussion of the case with the patient and the patient's mother at bedside, including differential diagnosis and treatment options. Subjective No pain or headaches. He is not dizzy and his left foot is feeling better. He saw Dr. Beverly who felt no surgery was warranted. A CT scan of the left foot showed 4 nondisplaced fractures in various locations. MRI of the cervical spine showed no cord lesions or impingement. Spine anatomy was reasonable as well. Patient's mother is at bedside. She adds some history. The patient did see , at [facility] who felt there was nothing further they can do for the patient. They were going to go to [facility] last year but this was canceled because insurance would not pay for it. They are awaiting a call from the [facility] for an appointment. There has been no genetic testing, as far as the mother is aware. Physical Exam Vital Signs (Past 24 Hours): Last Vital Signs Temp 36.7 C 10/11/18 07:00 Pulse 66 10/11/18 07:00 Resp 18 10/11/18 07:00 BP 111/76 10/11/18 07:00 Pulse Ox 92 10/11/18 07:00 Physical Exam: He is awake and alert. Speech is without aphasia. Strength and coordination exam is as before. Results & Data Diagnostic Findings [place], [place] [phone] Magnetic Resonance Report Patient: GIULIANA LOYA Date: 10/09/18 MR#: [id number]: [address] Acct ID:[id number]: Date: 1985[facility] Zip: [place] [address] Age: 32Location: 4E Sex: M Room/Bed: [facility] Att Phy: Logna Canales M.D.Diagnosis: FALLS,INSTABILITY Tammy Phy: Enmanuel Lucio, DOService Date: 10/10/18 Fam Phy: Interpreting Phy: Jeffrey Ramirez MD Admit Phy: Yvonne Yadav D.O. Ordering Phy: Logan Canales M.D. cc: ~ MR cervical spine wo con CLINICAL HISTORY: hyperreflexia/ ambulatory dysfunction TECHNIQUE: Sagittal and axial T1, T2 and STIR images were obtained. COMPARISON STUDY: No previous studies for comparison. There are no suspicious areas of marrow replacement. No intrinsic cervical cord lesions are visualized. C2-3: There is no evidence of disc bulge or focal herniation. There is no spinal or foraminal stenosis. C3-4: There is no evidence of disc bulge or focal herniation. There is no spinal or foraminal stenosis. C4-5: There are no disc bulges or focal herniations. There is no spinal or foraminal stenosis. C5-6 :There are no disc bulges or focal herniations. There is no spinal or foraminal stenosis. C6-7: There is a very minimal disc bulge. There is no significant spinal or foraminal stenosis. C7-T1: There is no evidence of disc bulge or focal herniation. There is no evidence of spinal or foraminal stenosis. IMPRESSION: 1. No significant abnormalities. No disc herniations identified. No evidence of spinal or foraminal stenosis. No cord lesions are visualized. Electronically signed by: Jeffrey Ramirez M.D. 10/10/2018 10:06 PM
[2018-10-12] MEDS: ACETAMINOPHEN 325 MG TAB PO PRN ×2 (07:43→15:53)
[2018-10-12] MEDS: PROPRANOLOL HCL LA 80 MG CAPCR PO SCH (07:44)
[2018-10-12] MEDS: CARBIDOPA/LEVODOPA 25/100MG TAB PO SCH ×2 (07:45→20:04)
[2018-10-12] MEDS: ENOXAPARIN INJ 40 MG/0.4 ML SYR SQ SCH (07:45)
--- NOTE | 2018-10-13 00:08 | Hospitalist Progress Note ---
Date of Service October 12, 2018 Assessment & Plan (1) Foot fracture, left: s/p mechanical fall in setting of ambulatory dysfunction from cerebellar ataxia -Placed fracture boot -Consulted ortho apprciate input -Pain control as needed (2) Ambulatory dysfunction: Patient unable to ambulate without assistance. Per father, his gait has become more ataxic over the past few months. Patient with diagnosis of cerebellar ataxia, specific etiology yet to be diagnosed. CT Head with cerebellar atrophy similar to prior imaging. Progressive symptoms. -Fall precautions -PT/OT evaluation -Consider Neurology consultation re: additional workup for ataxia. Patient is waiting to hear from [facility]. He was to be seen at [facility] as well but the appointment was cancelled. -Case Management to assist with placement and referrals On 10/10 discussed with Neurology, obtained MRI of c spine. This was negative. (3) Cerebellar degeneration: As above. Patient is waiting for more definitive diagnosis. Per disc ussion with patient's father this process has been quite lengthy and arduous. -Neuro assistance as above -Case management assistance as above Awaiting for placement (4) Asperger's syndrome: Chronic. Patient with effective communication and understanding. (5) Leukocytosis: WBC=13.27. Afebrile. No overt evidence of infection. Most likely reactive in setting of recent fall/trauma repeat wbc was normal. Awaiting placement to [facility] Subjective Patient reports no new symptoms. His pain is well controlled Patient's family is at bedside as well. Family is agreeable to rehab. Family requests cd for MRI of c spine. Review of Systems Neg Physical Exam Vital Signs (Past 24 Hours): Last Vital Signs Temp 36.5 C 10/12/18 15:00 Pulse 76 10/12/18 15:00 Resp 18 10/12/18 15:00 BP 130/74 10/12/18 15:00 Pulse Ox 97 10/12/18 15:00 Physical Exam: General: patient resting comfortably, NAD, non-toxic in appearance, answers some questions Skin: warm, dry, intact, no rashes or lesions, pale nail beds HEENT: NC/AT, PERRL, EOMI with nystagmus, icteric sclera, conjunctiva without injection, external ear normal to inspection and nontender, nares patent, moist mucus membranes, dentition intact, no oropharyngeal lesions, neck supple, trachea midline, no LAD, no thyromegaly, no JVD Heart: +S1/S2, regular, no m/r/g Lungs: equal air entry bilaterally, no rales/rhonchi/wheezes Abd: +BS, soft, NT/ND, no masses/organomegaly/ascites Ext: warm, 2+ pulses in UE/LE bilaterally, no clubbing/cyanosis or edema, left foot in boot Neuro: AA&O, speech garbled, no facial droop, MS 5/5 in UE (1) Leukocytosis Leukocytosis type: unspecified Qualified Code(s): D72.829 - Elevated white blood cell count, unspecified (2) Foot fracture, left Encounter type: initial encounter Fracture type: closed Qualified Code(s): S92.902A - Unspecified fracture of left foot, initial encounter for closed fracture
--- NOTE | 2018-10-13 00:08 | Hospitalist Progress Note ---
Date of Service October 11, 2018 Assessment & Plan (1) Foot fracture, left: s/p mechanical fall in setting of ambulatory dysfunction from cerebellar ataxia -Placed fracture boot -Consulted ortho apprciate input -Pain control as needed (2) Ambulatory dysfunction: Patient unable to ambulate without assistance. Per father, his gait has become more ataxic over the past few months. Patient with diagnosis of cerebellar ataxia, specific etiology yet to be diagnosed. CT Head with cerebellar atrophy similar to prior imaging. Progressive symptoms. -Fall precautions -PT/OT evaluation -Consider Neurology consultation re: additional workup for ataxia. Patient is waiting to hear from [facility]. He was to be seen at [facility] as well but the appointment was cancelled. -Case Management to assist with placement and referrals On 10/10 discussed with Neurology, will obtain MRI of c spine. This was negative. (3) Cerebellar degeneration: As above. Patient is waiting for more definitive diagnosis. Per d iscussion with patient's father this process has been quite lengthy and arduous. -Neuro assistance as above -Case management assistance as above (4) Asperger's syndrome: Chronic. Patient with effective communication and understanding. (5) Leukocytosis: WBC=13.27. Afebrile. No overt evidence of infection. Most likely reactive in setting of recent fall/trauma -CBC in AM F/E/N- Heplock. Monitor electrolytes and replete as needed. Regular diet as tolerated with aspiration precautions Ppx - Lovenox Code - Full Dispo - MedSurge, PT/OT eval, placement if indicated PT/OT Spent 25 minutes in management of patient, included discussion with family, chart review, and discussion with consultants. Subjective Patient reports no new symptoms. His pain is well controlled Patient's family is at bedside as well. Family is agreeable to rehab. Review of Systems All systems reviewed & are unremarkable except as noted in HPI & below Physical Exam Vital Signs (Past 24 Hours): Last Vital Signs Temp 36.4 C 10/11/18 15:00 Pulse 79 10/11/18 15:00 Resp 18 10/11/18 15:00 BP 108/71 10/11/18 15:00 Pulse Ox 98 10/11/18 15:00 Physical Exam: General: patient resting comfortably, NAD, non-toxic in appearance, answers some questions Skin: warm, dry, intact, no rashes or lesions, pale nail beds HEENT: NC/AT, PERRL, EOMI with nystagmus, icteric sclera, conjunctiva without injection, external ear normal to inspection and nontender, nares patent, moist mucus membranes, dentition intact, no oropharyngeal lesions, neck supple, trachea midline, no LAD, no thyromegaly, no JVD Heart: +S1/S2, regular, no m/r/g Lungs: equal air entry bilaterally, no rales/rhonchi/wheezes Abd: +BS, soft, NT/ND, no masses/organomegaly/ascites Ext: warm, 2+ pulses in UE/LE bilaterally, no clubbing/cyanosis or edema, left foot in boot Neuro: AA&O, speech garbled, no facial droop, MS 5/5 in UE (1) Leukocytosis Leukocytosis type: unspecified Qualified Code(s): D72.829 - Elevated white blood cell count, unspecified (2) Foot fracture, left Encounter type: initial encounter Fracture type: closed Qualified Code(s): S92.902A - Unspecified fracture of left foot, initial encounter for closed fracture
[2018-10-13] MEDS: ACETAMINOPHEN 325 MG TAB PO PRN ×2 (02:32→12:27)
[2018-10-13] MEDS: PROPRANOLOL HCL LA 80 MG CAPCR PO SCH (07:41)
[2018-10-13] MEDS: CARBIDOPA/LEVODOPA 25/100MG TAB PO SCH (07:41)
[2018-10-13] MEDS: ENOXAPARIN INJ 40 MG/0.4 ML SYR SQ SCH (07:41)
--- NOTE | 2018-10-13 16:33 | Discharge Summary ---
Date of Service October 13, 2018 Admission HPI Per Admitting Provider Patient is a 32yo C male with history of Asberger's syndrome/Autism which was diagnosed as a child, Gilbert's syndrome. 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 He has poor balance, slurred speech. He was seen in the past by [facility] (Dr. Delatorre at [facility]) and has been referred to [facility] and [facility] to complete diagnostic workup. Patient's father states there has been much difficulty with obtaining appointments and insurance issues. He has not had genetic testing performed as of yet. He presents this evening after a mechanical fall at home. He was walking down the stairs and tripped. He fell down 6 stairs. No LOC or head trauma. He was unable to get up secondary to weakness and poor coordination. His father was home at the time and helped him get up. Patient complaining of left foot pain after the fall as well as knee pain. He goes to PT q weekly. Therapists have commented that over the past few months his gait has become more ataxic. His father reports that he falls frequently at home. He is presently taking Sinimet for parkinsonism and propranolol for tremor. Admission Exam Per Admitting Provider General: patient resting comfortably, NAD, non-toxic in appearance, answers some questions but defers most to his father, speech garbled Skin: warm, dry, intact, no rashes or lesions, pale nail beds HEENT: NC/AT, PERRL, EOMI with nystagmus, icteric sclera, conjunctiva without injection, external ear normal to inspection and nontender, nares patent, moist mucus membranes, dentition intact, no oropharyngeal lesions, neck supple, trachea midline, no LAD, no thyromegaly, no JVD Heart: +S1/S2, regular, no m/r/g Lungs: equal air entry bilaterally, no rales/rhonchi/wheezes Abd: +BS, soft, NT/ND, no masses/organomegaly/ascites Ext: warm, 2+ pulses in UE/LE bilaterally, no clubbing/cyanosis or edema, left foot in boot Neuro: AA&O, speech garbled, no facial droop, MS 5/5 in UE, weakness in bilateral LE with poor coordination, tremor with finger to nose, unable to perform heel to hamm, unsteady gait requiring assistance to ambulate Principal Diagnosis Foot fracture Discharge Exam Constitutional WD/WN, vitals as above Eyes PERRL, conjunctivae normal, anicteric sclerae ENMT external ear and nose normal, oropharynx normal Neck trachea midline, no thyromegaly Respiratory normal respiratory effort, lungs clear to auscultation Cardiovascular RRR, no murmur, no edema Gastrointestinal (Abdomen) normal bowel sounds, soft, nontender, no hepatosplenomegaly Musculoskeletal Head/Neck/Chest: normocephalic, head atraumatic and neck supple; no chest tenderness Extremities: + abnormal strength (generalized weakness) Skin no rashes, warm and dry Neurologic + abnormal deep tendon reflexes (hyperreflexia) and + plantar reflexes not intact (toes upgoing bilaterally) Motor/Sensory: + abnormal movement (ataxia) Cranial Nerves: PERRL, EOM intact bilaterally and normal facial strength Gait: + ataxic gait Psychiatric A+Ox3, euthymic affect Lymphatic no cervical or axillary lymphadenopathy Discharge Data Allergies Allergy/AdvReac Type Severity Reaction Status Date / Time No Known Allergies Allergy Unknown Verified 10/09/18 18:32 Consultations 10/09/18 22:40 Consult Case Management - Discharge Planning Routine 10/09/18 22:46 Consult Neurology Routine 10/10/18 10:18 Consult Orthopedic Surgery Routine 10/13/18 00:38 Burn CD for patient Routine Ordered Studies 10/09/18 18:21 CT head/brain wo con Stat 10/10/18 15:47 CT foot LT wo con Routine 10/10/18 19:22 MR cervical spine wo con Routine Hospital Course (1) Foot fracture, left: s/p mechanical fall in setting of ambulatory dysfunction from cerebellar ataxia -Placed fracture boot -Consulted ortho apprciate input -Pain control as needed Ortho recommendations... Ice to the left foot, elevation on 1-2 pillows to help with edema. Knee high LAURENCE hose stockings bilaterally while in bed. May partially weightbear with a walker and assist x1. The patient may weight bear with a low tide walking boot for transfers. This is a nonoperative candidate at this time. (2) Ambulatory dysfunction: Patient unable to ambulate without assistance. Per father, his gait has become more ataxic over the past few months. Patient with diagnosis of cerebellar ataxia, specific etiology yet to be diagnosed. CT Head with cerebellar atrophy similar to prior imaging. Progressive symptoms. -Fall precautions -PT/OT evaluation -Consider Neurology consultation re: additional workup for ataxia. Patient is waiting to hear from [facility]. He was to be seen at [facility] as well but the appointment was cancelled. -Case Management to assist with placement and referrals On 10/10 discussed with Neurology, obtained MRI of c spine. This was negative. (3) Cerebellar degeneration: As above. Patient is waiting for more definitive diagnosis. Per discussion with patient's father this process has been quite lengthy and arduous. 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 Patient with effective communication and understanding. (5) Leukocytosis: WBC=13.27. Afebrile. No overt evidence of infection. Most likely reactive in setting of recent fall/trauma repeat wbc was normal. transfer to rehab Total Time Total Time Spent Total Time Spent (In Minutes): 20 minutes Total Time Includes: Examination of the Patient, Discharge Planning and Medication Reconciliation Discharge Plan Discharge Items Patient Disposition: Transfer Inpatient Rehab Fac Reason For Visit: FALLS,INSTABILITY Discharge Diagnosis: Foot fracture, cerebellar ataxia Condition: Good Discharge Goals: Improve function and Increase independence Activity: Resume your previous activity Non-emergency contact: Primary Care Provider and Neurologist Call non-emergency contact if: you have any medication questions and your symptoms worsen Follow-up/Referrals: Enmanuel Lucio, [Primary Care Provider] - Diet: Regular Addtl Provider Instructions: Medications: no changes, there are no medications to treat the ataxia Left foot fracture, see ortho recommendations below... IMPRESSION: Left foot proximal third and distal fourth metatarsal fractures without significant displacement. RECOMMENDATIONS: Ice to the left foot, elevation on 1-2 pillows to help with edema. Knee high LAURENCE hose stockings bilaterally while in bed. May partially weightbear with a walker and assist x1. The patient may weight bear with a low tide walking boot for transfers. This is a nonoperative candidate at this time. Ultimately goal is to return home, is in the process of getting evaluated at [facility] for ataxia Prescriptions: Continued propranolol 80 mg capsule,extended release 24 hr 80 mg PO QAM RF: 0 carbidopa-levodopa 25-100 mg tablet 1 tab PO UD RF: 0 Stand-Alone Forms: [facility] Discharge Orders: Discharge Order (Routine); Ordered 10/13/18 Ordered By: Zana Correia Skilled Items Patient informed of condition?: Yes DNR: No Discharge Level of Care: Acute rehab Communicable Disease: No Discharge Prognosis: Stable Admission Data Admit Date/Time: 10/09/18 21:56 Attending Provider: Zana Correia Admit Provider: Yvonne Yadav Primary Care Provider: Enmanuel Lucio Other Providers: Jaime Barone III ; Evans Beverly Service: Medical Other Interventions: Discharge Summary Assessment (RN) Last Done: 10/13/18 15:52 DC Date/Time DO NOT enter until pt leaves facility: 10/13/18 16:44
== END 2018-10-13 16:44 | DRG 58 ==
LOC: ED 17:16 → 4E 21:56 → SUATTDRO 21:56 → 4E 22:16

== ENCOUNTER 2018-10-18 10:21 | Inpatient (IN) ==
[2018-10-18] MEDS ORDERED: SODIUM CHLORIDE 0.9% 1000ML 1,000 ML IV ONE ×2 (10:49→11:54)
[2018-10-18] MEDS ORDERED: ACETAMINOPHEN 1,000 MG/100 ML VIAL IV STA (10:55)
[2018-10-18 11:16] LABS: Basophils # (auto) 0.01 K/uL (0-0.2); Basophils % (auto) 0.1 %; Eosinophils # (auto) 0.02 K/uL (0-0.5); Eosinophils % (auto) 0.2 %; Hematocrit (blood only) 43.4 % (42-52); Hemoglobin 15.8 g/dL (14.0-18.0); Immature Granulocytes # (auto) 0.06 K/uL (0.00-0.02); Immature Granulocytes % (auto) 0.5 %; Lymphocytes # (auto) 0.43 K/uL (1.2-3.4); Lymphocytes % (auto) 3.5 %; Mean Corpuscular Hgb Conc 36.4 g/dL (32-36); Mean Corpuscular Volume 86.5 fL (80-100); Mean Platelet Volume 8.1 fL (7.4-10.4); Monocytes # (auto) 0.78 K/uL (0.11-0.59); Monocytes % (auto) 6.3 %; Neutrophils # (auto) 11.15 K/uL (1.4-6.5); Neutrophils % (auto) 89.4 %; Platelet Count 188 K/uL (130-400); RDW Coefficient of Variation 12.8 % (11.5-14.5); RDW Standard Deviation 40.6 fL (36.4-46.3); Red Blood Count 5.02 M/uL (4.7-6.1); White Blood Count 12.45 K/uL (4.8-10.8)
[2018-10-18 11:25] LABS: INR 1.1 (0.9-1.1); Prothrombin Time 10.8 Seconds (9.0-12.0)
--- NOTE | 2018-10-18 11:27 | XRay Report ---
XR chest 1V portable HISTORY: Sepsis COMPARISON: Chest 05/03/2016. FINDINGS: No pneumothorax. No pleural effusions. The heart remains mildly enlarged. Mild diffuse inte rstitial thickening persists. No new focal lung consolidations. IMPRESSION: No change in the mild cardiomegaly and chronic interstitial thickening. Electronically signed by: Dariel Medley M.D. 10/18/2018 11:25 AM
[2018-10-18 11:31] LABS: Alanine Aminotransferase 22 U/L (12-78); Albumin Level 3.7 gm/dl (3.4-5.0); Aspartate Aminotransferase 22 U/L (15-37); BUN Creatinine Ratio 15.2 (10-20); Blood Urea Nitrogen 12 mg/dl (7-18); Calcium 8.6 mg/dl (8.5-10.1); Carbon Dioxide 22 mmol/L (21-32); Chloride 109 mmol/L (98-107); Creatinine Clr Calc Pharmacy 117.9 ml/min; Est GFR (African American) 138.7; Est GFR (Non-African American) 119.7; Glucose 109 mg/dl (70-99); Potassium 3.3 mmol/L (3.5-5.1); Sodium 139 mmol/L (136-145)
[2018-10-18 11:36] LABS: Alkaline Phosphatase 132 U/L (45-117); Bilirubin,Total 3.5 mg/dl (0.2-1); Globulin 3.7 gm/dl (2.5-4.0); Total Protein 7.4 gm/dl (6.4-8.2); Troponin I < 0.015 ng/ml (0-0.045)
[2018-10-18 11:54] LABS: Influenza A virus by PCR Neg for Influ A (Neg); Influenza B virus by PCR Neg for Influ B (Neg)
[2018-10-18] MEDS ORDERED: OPTIRAY 320 125ml IV PRN (12:47)
--- NOTE | 2018-10-18 13:15 | CT Scan Report ---
HEAD CT NONCONTRAST CT DOSE: 844.54 mGycm HISTORY: Altered mental status. TECHNIQUE: Multiaxial CT images of the head were performed without the use of intravenous contrast. A utomated exposure control was utilized for this study. A dose lowering technique was utilized adheri ng to the principles of ALARA. Comparison: Head CT 10/09/2018. Findings: The paranasal sinuses and mastoid air cells are clear. The calvarium and skull base are int act. The ventricles and sulci are within normal limits. There is no mass, hematoma, midline shift, or acute infarct. No change in the hypodensity within the bilateral cerebellar hemispheres. This sugges ts old infarcts. Impression: No significant change compared to the prior study. No acute intracranial abnormality. Electronically signed by: Dariel Medley M.D. 10/18/2018 1:14 PM
[2018-10-18] MEDS ORDERED: PIPERACILLIN/TAZOBACTAM 4.5 GM/120 ML BAG IV ONE (13:32)
[2018-10-18] MEDS ORDERED: VANCOMYCIN CONSULT ACTIVE PRN ×2 (13:32→17:49)
[2018-10-18] MEDS ORDERED: VANCOMYCIN CONSULT ACTIVE ONE (13:32)
[2018-10-18] MEDS ORDERED: PIPERACILL/TAZOBAC CONSULT ACTIVE PRN ×2 (13:32→17:49)
[2018-10-18] MEDS ORDERED: VANCOMYCIN HCL 1,250 MG in SODIUM CHLORIDE 0.9% 500 ML IV ONE (13:32)
[2018-10-18] MEDS ORDERED: KETOROLAC TROMETHAMINE 15 MG/ML VIAL IV STA (13:32)
--- NOTE | 2018-10-18 13:35 | CT Scan Report ---
CHEST CTA for PULMONARY ARTERIES CT DOSE: 1107.72 mGycm HISTORY: Altered mental status. Atypical chest pain. TECHNIQUE: Multiaxial CT images of the chest were performed following the intravenous administration of contrast to evaluate the pulmonary arteries. Maximal intensity projection images were also obtaine d. A dose lowering technique was utilized adhering to the principles of ALARA. COMPARISON STUDY: Chest CT 02/04/2007. FINDINGS: Normal caliber thoracic aorta with no evidence for dissection. The heart is borderline enla rged. No pleural or pericardial effusions. Subcentimeter right thyroid nodule. No mediastinal or frank r lymphadenopathy. Mild diffuse thickening of the esophagus with adjacent fat stranding. Respiratory motion artifact in suboptimal contrast opacification results in nondiagnostic evaluation within the m ajority of the segmental and subsegmental pulmonary arteries. However, the main and lobar pulmonary a rteries appear patent. No evidence for pulmonary embolus. No fractures within the visualized osseous structures. No pneumothorax. The central airways are patent. Small patchy densities within the lower lobe posteriorly. There are also tree-in-bud groundglass nodular airspace opacities seen within the b ilateral lower lobes and posteriorly within the lingula and right middle lobe. This is consistent wit h an infectious bronchiolitis. IMPRESSION: 1. No evidence for pulmonary embolus with limitations as described above. 2. There are tree-in-bud groundglass nodular airspace opacities seen within the bilateral lower lobes and posteriorly within the lingula and right middle lobe. This is consistent with an infectious bron chiolitis and may be due to aspiration.. 3. Mild diffuse esophageal wall thickening consistent with a nonspecific esophagitis. Electronically signed by: Dariel Medley M.D. 10/18/2018 1:34 PM
--- NOTE | 2018-10-18 13:41 | CT Scan Report ---
ABDOMEN AND PELVIS CT WITH IV CONTRAST CT DOSE: HISTORY: fever, ams, urinary incontinence, elevated bilirubin TECHNIQUE: Multiaxial CT images of the abdomen and pelvis were performed following the use of intrave nous contrast. A dose lowering technique was utilized adhering to the principles of ALARA. COMPARISON STUDY: Abdomen CT 02/07/2007. FINDINGS: No pneumoperitoneum. No pneumatosis. No fractures within the visualized osseous structures. The liver, gallbladder, pancreas, and adrenal glands are unremarkable. There are streak artifact obs curing the upper abdominal structures. However, the kidneys appear to enhance normally. No hydronephr osis. No retroperitoneal lymphadenopathy. No dilated loops of small bowel to suggest an obstruction. Punctate calcifications along the left posterior bladder wall. These could represent small bladder st ones. Fluid-filled colon. There is mild thickening and pericolonic fat stranding throughout the major ity of the colon. Normal appendix. IMPRESSION: 1. Mild thickening throughout the majority of the colon. The colon is fluid-filled. Therefore, this i s consistent with a nonspecific colitis and is likely due to an infectious or inflammatory process. 2. No evidence for bowel obstruction. 3. Normal appendix. 4. Please refer to the same day chest CT for further evaluation of the lung bases. Electronically signed by: Dariel Medley M.D. 10/18/2018 1:40 PM
[2018-10-18] MEDS ORDERED: PANTOprazole 40 MG in SYRINGE 0 ML IV ONE (13:53)
--- NOTE | 2018-10-18 14:34 | History & Physical Report ---
Date of Service October 18, 2018 Assessment & Plan (1) Sepsis: Possible sources include lungs (bibasilar infiltrates seen on CT) vs GI (??colitis, although no abd pain nor diarrhea) vs urine vs other. Flu testing negative. Send u/a and urine culture. Follow blood cultures. In light of ?colitis on CT abd/pelvis send c.diff if he starts with diarrhea. Will cont the zosyn & vancomycin begun in ER for broad-coverage until we know the exact source. If the source is indeed the lungs will add zithromax for atypical coverage. Repeat cbc in am. (2) Pneumonia: possible. see CT lungs report. Zosyn/vanco/zithromax. Was just hospitalized last week so need to cover hospital-acquired pathogens. check MRSA swab. He had vomiting last pm- could he have aspirated? Have speech see for swallow eval to be complete. Present on Admission?: Yes (3) Foot fracture, left: 2nd to fall; was hospitalized for this about 1 week ago. Multiple fractures are present in the left foot. Continue walking boot. Can bear weight as tolerated in that boot. Check vitamin D level in am. Present on Admission?: Yes (4) Altered mental status: This AM at [facility] when he spiked a fever. Likely metabolic encephalopathy 2nd to infection. Mental status is already better per his parents. Supportive care; serial exams. Present on Admission?: Yes (5) Abnormal CT of the abdomen: ??colitis on CT. However, does not have abdominal pain, diarrhea, etc. Check c. diff if he begins to have loose stools. Hold constipation aids. Present on Admission?: Yes (6) Abnormal movement of lower extremity: His mother noted shaking of the right arm and right leg for 1-2 hours this AM at [facility]. He was sleepy but awake during this time. He had a concomitant fever at that time as well. I suspect this was rigors from infection but it's odd it wasn't bilateral. Will check EEG just to make sure this was not a focal seizure. Present on Admission?: Yes (7) Cerebellar degeneration: Chronic, awaiting work-up at the [facility] for this. Dr. Barone documented brisk reflexes and upper motor neuron signs when he was consulted at his last admission. My exam findings are similar to Dr. Barone's. PT, OT evals. Fall precautions. Present on Admission?: Yes (8) Ambulatory dysfunction: 2nd to cerebellar degeneration leading to ataxia. See above. PT, OT. Cont carbidopa-levodopa. (9) Asperger's syndrome: chronic, long-standing. (10) Esophagitis: as noted on CT today. pt's father notes patient has frequent hiccups at home. he also drinks alcohol fairly regularly. start PPI daily. may need endoscopic evaluation after discharge. (11) DVT prophylaxis: lovenox 40mg daily. continue IVF. clear liquid diet. parents updated at bedside. History of Present Illness Chief Complaint: fever, altered mental status Primary Care Provider: AUBREY Romero 32yo male with h/o autism/Asberger's syndrome, cerebellar degeneration with ataxia and falls, and recent left foot fracture due to a fall. He was recently hospitalized at [facility] for the foot fracture and d/c to [facility] at time of discharge for inpatient rehab. Mother/father were both at bedside and they provided all historical details. He had been progressing at [facility] with his therapies and had a "good day" yesterday per his parents. He was eating/drinking well, having normal bowel movements, and was at his neurocognitive baseline. Family saw him last evening and was in his usual state of health. Sometime overnight he had an episode of emesis. Then, this am when his mother went to visit him at [facility], she found him altered while sitting in his wheelchair in his room. He would/could not eat, and although his eyes were open and he was awake, his mother stated "he was out of it." His head would slump and his right arm/leg "shook for 2 hours." He was noted to have fever at the time of the arm/leg shaking. He was ultimately sent to [facility] for evaluation. Mother/father report no additional emesis or diarrhea while in the ER. They have heard him cough a few times. His mentation has improved dramatically from this morning. There have been no reports of abdominal pain, dyspnea, dysuria or urinary incontinence, rashes, chest pain, ear pain, sore throat, or other complaints from [place]. His parents have never witnessed aspiration or dysphagia. Allergies Allergy/AdvReac Type Severity Reaction Status Date / Time No Known Allergies Allergy Unknown Verified 10/18/18 11:56 Home Medications Home Medications Medication Instructions Recorded Confirmed Type carbidopa-levodopa 1 tab PO BID 10/09/18 10/18/18 History propranolol 80 mg PO QAM 10/09/18 10/18/18 History acetaminophen [Tylenol] 650 mg PO Q4H PRN 10/18/18 10/18/18 History bisacodyl 10 mg OR DAILY PRN 10/18/18 10/18/18 History dextromethorphan-guaifenesin 1 tab PO Q12H 10/18/18 10/18/18 History [Mucinex DM] docusate sodium 100 mg PO BID 10/18/18 10/18/18 History enoxaparin [Lovenox] 40 mg SUBCUT DAILY 10/18/18 10/18/18 History magnesium hydroxide [Milk of 30 ml PO DAILY PRN 10/18/18 10/18/18 History Magnesia] ondansetron 4 mg PO Q4H PRN 10/18/18 10/18/18 History polyethylene glycol 3350 [Miralax] 17 g PO DAILY PRN 10/18/18 10/18/18 History sennosides-docusate sodium 1 tab PO DAILY PRN 10/18/18 10/18/18 History [Senokot-S] sodium phosphates [Fleet Enema 118 ml OR DAILY PRN 10/18/18 10/18/18 History Extra] Past Med/Surg History Medical History Asperger syndrome Cerebellar ataxia [place] disease No significant past surgical history Family History Mother No problems noted. Father Diabetes Other Cancer Social History Preferred Language: Luxembourgish Communication Ability: Impaired Electronic Game Developer Required: No Beliefs That Will Affect Care: None marital status details: single Current Living Situation: Parent and Family Current Living Situation Comment: lives with father current occupational status: disabled current occupation: none Other Information That Helps Us Care for You: No Feels Safe at Home: Yes Safety Concerns: Feels Safe At This Time Smoking Status: Never smoker Hx Alcohol Use: No Hx Substance Use: No Review of Systems Unobtainable due to cognitive status Physical Exam Vital Signs (Past 24 Hours): Last Vital Signs Temp 38.1 C H 10/18/18 13:32 Pulse 102 H 10/18/18 13:15 Resp 21 10/18/18 13:15 BP 123/73 10/18/18 13:15 Pulse Ox 99 10/18/18 13:15 Constitutional: well developed, well nourished and average body habitus; no acute distress and not ill appearing talks very little; gives one-word answers on occasion; cooperative Eyes: + scleral abnormality (minimal icterus) and PERRL ENMT: external ear and nose normal, oropharynx normal Ears: no EAC abnormality and no TM abnormality Neck: trachea midline, no thyromegaly Respiratory: normal respiratory effort, lungs clear to auscultation no respiratory distress and no labored breathing Cardiovascular: Rate/Rhythm: regular rhythm and + tachycardic Heart Sounds: normal S1 and normal S2; no murmur Vessels: posterior tibial pulses present and dorsalis pedis pulses present; no JVD Extremities: no edema Gastrointestinal (Abdomen): normal bowel sounds, soft, nontender, no hepatosplenomegaly Musculoskeletal: left leg/foot boot removed; there is mild ecchymoses over the distal dorsal foot; minimal swelling over distal foot; no areas of skin breakdown or cellulitis Skin: no rashes, warm and dry Neurologic: no focal motor deficits (strength 5/5 x 4 exts) the patient's right arm and right leg reflexes are modestly more brisk relative to the left a rm and left leg. he has ankle clonus - about 3-4 beats - on right. mild ankle clonus on left. Psychiatric: Orientation: alert; + not oriented x 3 Affect: + flat affect Lymphatic: no cervical lymphadenopathy Results & Data Laboratory Results Laboratory Results - last 24 hr 10/18/18 10/18/18 10/18/18 11:05 11:05 11:05 WBC 12.45 H RBC 5.02 Hgb 15.8 Hct 43.4 MCV 86.5 MCH 31.5 MCHC 36.4 H RDW Std Deviation 40.6 RDW Coeff of Ian 12.8 Plt Count 188 MPV 8.1 Immature Gran % (Auto) 0.5 Neut % (Auto) 89.4 Lymph % (Auto) 3.5 Gulf % (Auto) 6.3 Eos % (Auto) 0.2 Baso % (Auto) 0.1 Immature Gran # (Auto) 0.06 H Neut # (Auto) 11.15 H Lymph # (Auto) 0.43 L Gulf # (Auto) 0.78 H Eos # (Auto) 0.02 Baso # (Auto) 0.01 PT 10.8 INR 1.1 Sodium 139 Potassium 3.3 L Chloride 109 H Carbon Dioxide 22 Anion Gap 8.0 BUN 12 Creatinine 0.79 Est Cr Clr Drug Dosing 117.9 Est GFR ( Amer) 138.7 Est GFR (Non-Af Amer) 119.7 BUN/Creatinine Ratio 15.2 Glucose 109 H Lactate Calcium 8.6 Total Bilirubin 3.5 H AST 22 ALT 22 Alkaline Phosphatase 132 H Troponin I < 0.015 Total Protein 7.4 Albumin 3.7 Globulin 3.7 Albumin/Globulin Ratio 1.0 Lipase 171 Procalcitonin Influenza Type A (PCR) Influenza Type B (PCR) 10/18/18 10/18/18 10/18/18 11:05 11:05 11:05 WBC RBC Hgb Hct MCV MCH MCHC RDW Std Deviation RDW Coeff of Ian Plt Count MPV Immature Gran % (Auto) Neut % (Auto) Lymph % (Auto) Gulf % (Auto) Eos % (Auto) Baso % (Auto) Immature Gran # (Auto) Neut # (Auto) Lymph # (Auto) Gulf # (Auto) Eos # (Auto) Baso # (Auto) PT INR Sodium Potassium Chloride Carbon Dioxide Anion Gap BUN Creatinine Est Cr Clr Drug Dosing Est GFR ( Amer) Est GFR (Non-Af Amer) BUN/Creatinine Ratio Glucose Lactate 2.2 H* Calcium Total Bilirubin AST ALT Alkaline Phosphatase Troponin I Total Protein Albumin Globulin Albumin/Globulin Ratio Lipase Procalcitonin 1.42 H Influenza Type A (PCR) Neg for Influ A Influenza Type B (PCR) Neg for Influ B Diagnostic Findings CTA chest - IMPRESSION: 1. No evidence for pulmonary embolus with limitations as described above. 2. There are tree-in-bud groundglass nodular airspace opacities seen within the bilateral lower lobes and posteriorly within the lingula and right middle lobe. This is consistent with an infectious bronchiolitis and may be due to aspiration.. 3. Mild diffuse esophageal wall thickening consistent with a nonspecific esophagitis. CT abd/pelvis - IMPRESSION: 1. Mild thickening throughout the majority of the colon. The colon is fluid- filled. Therefore, this is consistent with a nonspecific colitis and is likely due to an infectious or inflammatory process. 2. No evidence for bowel obstruction. 3. Normal appendix. CT head - Findings: The paranasal sinuses and mastoid air cells are clear. The calvarium and skull base are intact. The ventricles and sulci are within normal limits. There is no mass, hematoma, midline shift, or acute infarct. No change in the hypodensity within the bilateral cerebellar hemispheres. 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 Impression: No significant change compared to the prior study. No acute intracranial abnormality. EKG - my reading - sinus tach, minimal ST change I/AVL Code Status & VTE Plan Code Status full code level 1 VTE Prophylaxis Plan VTE Prophylaxis will be ordered: Yes (1) Sepsis Sepsis type: sepsis due to unspecified organism Qualified Code(s): A41.9 - Sepsis, unspecified organism (2) Altered mental status Altered mental status type: somnolence Qualified Code(s): R40.0 - Somnolence (3) Foot fracture, left Encounter type: initial encounter Fracture type: closed Qualified Code(s): S92.902A - Unspecified fracture of left foot, initial encounter for closed fracture (4) Pneumonia Laterality: bilateral Lung location: lower lobe of lung Pneumonia type: due to unspecified organism Qualified Code(s): J18.1 - Lobar pneumonia, unspecified organism
[2018-10-18] MEDS ORDERED: VANCOMYCIN HCL 1,000 MG in SODIUM CHLORIDE 0.9% 250 ML IV SCH (17:49)
[2018-10-18] MEDS ORDERED: POTASSIUM CHLORIDE 10 MEQ TABCR PO STA (17:49)
[2018-10-18] MEDS ORDERED: AZITHROMYCIN 250 MG TAB PO ONE (17:49)
[2018-10-18] MEDS ORDERED: BISACODYL 10 MG SUPP PR PRN (17:49)
[2018-10-18] MEDS: ONDANSETRON INJ 2 MG/ML 2 ML VIAL IV PRN (18:07)
[2018-10-18] MEDS: NSS + 20MEQ KCL 20 MEQ/1,000 ML BAG IV SCH (18:33)
[2018-10-18] MEDS: PIPERACILLIN/TAZOBACTAM 3.375 GM in DEXTROSE 5% 100 ML IV SCH (18:33)
[2018-10-18] MEDS: ACETAMINOPHEN 325 MG TAB PO PRN (19:30)
[2018-10-18] MEDS: guaiFENesin SUGAR FREE 200 MG/10 ML UDC PO SCH (20:10)
[2018-10-18] MEDS: CARBIDOPA/LEVODOPA 25/100MG TAB PO SCH (20:10)
[2018-10-18] MEDS: PANTOprazole 40 MG TAB PO SCH (20:10)
[2018-10-18] MEDS: MAGNESIUM SULFATE / D5W 1 GM/100 ML BAG IV SCH ×2 (21:09→22:16)
[2018-10-18] MEDS ORDERED: PNEUMOCOCCAL POLYSACCHARIDES 25 MCG/0.5 ML VIAL/SYR IM ONE (21:15)
[2018-10-18] MEDS ORDERED: INFLUENZA ADMINISTRATION CHARGE ONE (21:15)
[2018-10-18] MEDS ORDERED: INFLUENZA VIRUS QUAD VACCINE 0.5 ML SYR IM ONE (21:15)
[2018-10-18] MEDS ORDERED: PNEUMOCOCCAL ADMINISTRATION CHARGE ONE (21:15)
[2018-10-18 23:08] LABS: Appearance Urine Clear (Clear); Bilirubin Urine Negative (Negative); Blood Urine Negative (Negative); Color Urine Yellow; Glucose Urine UA Negative (Negative); Ketones Urine Negative (Negative); Leukocyte Esterase Urine Negative (Negative); Nitrite Urine Negative (Negative); Protein Urine Negative (Negative); Specific Gravity Urine > 1.045 (1.000-1.030); Urobilinogen Urine Negative (Negative); pH Urine 6.5 (4.5-7.5)
[2018-10-18] MEDS: VANCOMYCIN HCL 1,000 MG in SODIUM CHLORIDE 0.9% 250 ML IV SCH (23:46)
[2018-10-19] MEDS: guaiFENesin SUGAR FREE 200 MG/10 ML UDC PO SCH ×4 (00:02→17:13)
[2018-10-19] MEDS: PIPERACILLIN/TAZOBACTAM 3.375 GM in DEXTROSE 5% 100 ML IV SCH ×3 (02:08→21:30)
[2018-10-19] MEDS ORDERED: PIPERACILLIN/TAZOBACTAM 3.375 GM in DEXTROSE 5% 100 ML IV SCH (05:30)
[2018-10-19] MEDS: NSS + 20MEQ KCL 20 MEQ/1,000 ML BAG IV SCH (05:30)
[2018-10-19] MEDS: ACETAMINOPHEN 325 MG TAB PO PRN ×3 (05:37→20:27)
[2018-10-19 05:42] LABS: Hematocrit (blood only) 37.9 % (42-52); Hemoglobin 13.5 g/dL (14.0-18.0); Mean Corpuscular Hgb Conc 35.6 g/dL (32-36); Mean Corpuscular Volume 86.5 fL (80-100); Mean Platelet Volume 8.2 fL (7.4-10.4); Platelet Count 174 K/uL (130-400); RDW Coefficient of Variation 12.5 % (11.5-14.5); Red Blood Count 4.38 M/uL (4.7-6.1)
[2018-10-19] MEDS ORDERED: Nursing to Pharmacy Communication ONE (05:42)
--- NOTE | 2018-10-19 05:53 | Procedure Note ---
Procedure Note Date of Service October 19, 2018 Procedure: Equine Breeder Indwelling Peripherally Inserted IV Catheter Placement Attending: Dr. Barba APC: Gaston Aguirre PA-C Indication: Need for IV Access, Poor Vascular Access Anesthesia: None Verbal consent was obtained from patient prior to performing the procedure. A time-out was completed verifying correct patient, procedure, site, positioning, and implant(s) or special equipment if applicable. Utilizing bedside ultrasound, vascularity of the RIGHT Upper extremity was assessed. Ves fany size was noted for appropriate catheter selection and skin was marked with gentle pressure. Patients RIGHT upper extremity was prepped and draped in the usual sterile fashion utilizing chlorhexidine. Ultrasound guidance was used to aid needle placement. A 22 g Endurance Catheter was introduced into the RIGHT forearm cephalic branch vein under direct ultrasound guidance. Guide wire was easily deployed without resistance. Catheter was threaded over the guide wire without resistance and the entire apparatus was removed intact. Good venous blood return was noted in the catheter. The IV catheter was easily flushed with sterile saline flush. Sterile clave was attached to the end of the catheter and good blood return was again noted. Tourniquet was released. StatLock device and sterile dressing were applied. The patient tolerated the procedure well. Blood Loss: Minimal Complications: None Procedural Ultrasound Guidance: Procedure Date: 10/19/2018 Indication: Poor Vascular Access Attending: Dr. Barba APC: Gaston Aguirre PA-C Artery/Veins Identified: YES Access confirmed in Vein with ultrasound: YES Complications: NONE Patient tolerated procedure: WELL
[2018-10-19 06:09] LABS: BUN Creatinine Ratio 8.5 (10-20); Calcium 7.5 mg/dl (8.5-10.1); Creatinine Clr Calc Pharmacy 144.2 ml/min; Est GFR (African American) 148.4; Potassium 3.1 mmol/L (3.5-5.1)
[2018-10-19 06:59] LABS: Albumin Level 2.9 gm/dl (3.4-5.0); Bilirubin Direct 0.3 mg/dl (0-0.2); Bilirubin,Total 3.5 mg/dl (0.2-1)
[2018-10-19] MEDS: AZITHROMYCIN 250 MG TAB PO SCH (08:10)
[2018-10-19] MEDS: ENOXAPARIN INJ 40 MG/0.4 ML SYR SQ SCH (08:10)
[2018-10-19] MEDS: PANTOprazole 40 MG TAB PO SCH (08:11)
[2018-10-19] MEDS: CARBIDOPA/LEVODOPA 25/100MG TAB PO SCH ×2 (08:11→20:27)
[2018-10-19] MEDS: PROPRANOLOL HCL LA 80 MG CAPCR PO SCH (08:11)
--- NOTE | 2018-10-19 08:46 | Hospitalist Progress Note ---
Date of Service October 19, 2018 Assessment & Plan (1) Sepsis: Suspect pneumonia although ct findings show some colitis, no clinical symptoms Flu testing negative. Send u/a and urine culture. Follow blood cultures. zosyn & azithromax Vancomycin stopped as nasal MRSA swab was negative (2) Pneumonia: Zosyn/zithromax. Was just hospitalized last week so need to cover hospital-acquired pathogens. Negative MRSA swab. CTA . No evidence for pulmonary embolus with limitations as described above. There are tree-in-bud groundglass nodular airspace opacities seen within the bilateral lower lobes and posteriorly within the lingula and right middle lobe. This is consistent with an infectious bronchiolitis and may be due to aspiration.. Mild diffuse esophageal wall thickening consistent with a nonspecific esophagitis. Although the patient has no complaints of this (3) Foot fracture, left: 2nd to fall; was hospitalized for this about 1 week ago. Multiple fractures are present in the left foot. Continue walking boot. Can bear weight as tolerated in that boot. Check vitamin D level in am. (4) Altered mental status: [facility] when he spiked a fever. Likely metabolic encephalopathy 2nd to infection. (5) Abnormal CT of the abdomen: CT abdomen shows Mild thickening throughout the majority of the colon. The colon is fluid-filled. Therefore, this is consistent with a nonspecific colitis and is likely due to an infectious or inflammatory process. No evidence for bowel obstruction, Normal appendix., does not have abdominal pain, diarrhea, etc. Check c. diff if he begins to have loose stools. (6) Abnormal movement of lower extremity: His mother noted shaking of the right arm and right leg for 1-2 hours this AM at [facility]. He was sleepy but awake during this time. He had a concomitant fever at that time as well. EEG just to make sure this was not a focal seizure. The symptoms are not present on my examination 10/19 (7) Cerebellar degeneration: Chronic, awaiting work-up at the [facility] for this. Dr. Barone documented brisk reflexes and upper motor neuron signs when he was consulted at his last admission. My exam findings are similar to Dr. Barone's. PT, OT,speech evals. Fall precautions. 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 See above. PT, OT. Cont carbidopa-levodopa. (9) Asperger's syndrome: chronic, long-standing. (10) Esophagitis: as noted on CT today. pt's father notes patient has frequent hiccups at home. he also drinks alcohol fairly regularly. start PPI daily. may need endoscopic evaluation after discharge. (11) DVT prophylaxis: lovenox 40mg daily. Subjective Patient is with minimal complaints he is may be likely learning impaired he has no focal other problems his mother is at the bedside and updated. He is a very little productive cough but no bowel output today Review of Systems ROS: well nourished well developed. No double vision blurry vision No problems with speech or swallowing No palpitations, chest pain or pressure Nonproductive cough no dyspnea No abdominal pain nausea vomiting has had no diarrhea or stool output changes No burning urine urine frequency or changes in color No focal joint pain or muscle pain No skin rashes or oral lesions No unusual bruising or bleeding No focused back pain or numbness or loss of strength No changes in memory or confusion Physical Exam Vital Signs (Past 24 Hours): Last Vital Signs Temp 36.8 C 10/19/18 07:54 Pulse 102 H 10/19/18 07:54 Resp 18 10/19/18 07:54 BP 113/62 10/19/18 07:54 Pulse Ox 92 10/19/18 07:54 The patient appeared well nourished and normally developed. Vital signs as documented. Head exam is unremarkable. normocephalic, atraumatic Neck is without jugular venous distension, thyromegaly, or lymphademopathy Lungs are mild coarse breath sounds at the bases which clear with coughing Cardiac exam reveals Rhythm is regular. First and second heart sounds normal. Abdominal exam reveals normal bowel sounds, no masses, no organomegaly nontender to examination Extremities are nonedematous and both pedal pulses are present Neurologic exam is A&Ox3, cerebellar deficits seen on previous brain imaging likely impacting some of his ability to move fluidly Psychologically seems neither anxious or depressed Skin is warm Dry without bruises or lesions (1) Sepsis Sepsis type: sepsis due to unspecified organism Qualified Code(s): A41.9 - Sepsis, unspecified organism (2) Altered mental status Altered mental status type: somnolence Qualified Code(s): R40.0 - Somnolence (3) Foot fracture, left Encounter type: initial encounter Fracture type: closed Qualified Code(s): S92.902A - Unspecified fracture of left foot, initial encounter for closed fracture (4) Pneumonia Laterality: bilateral Lung location: lower lobe of lung Pneumonia type: due to unspecified organism Qualified Code(s): J18.1 - Lobar pneumonia, unspecified organism
[2018-10-19] MEDS ORDERED: POTASSIUM CHLORIDE 10 MEQ / 100ML WTR IV STA (08:56)
[2018-10-19] MEDS ORDERED: MAGNESIUM SULFATE / D5W 1 GM/100 ML BAG IV ONE (09:00)
[2018-10-19] MEDS: POTASSIUM CHLORIDE 20 MEQ TABCR PO SCH ×2 (09:45→20:27)
[2018-10-19] MEDS: PANTOprazole 40 MG in SYRINGE 0 ML IV SCH ×2 (09:46→20:27)
[2018-10-19] MEDS: POTASSIUM CHLORIDE / WTR 10 MEQ/100 ML PLCT IV SCH ×3 (11:05→13:03)
[2018-10-19] MEDS: VANCOMYCIN HCL 1,000 MG in SODIUM CHLORIDE 0.9% 250 ML IV SCH (11:05)
--- NOTE | 2018-10-19 16:49 | Emergency Department Note ---
Entered by Siobhan Bangura acting as a scribe for Becca Reyez DO History of Present Illness General Chief complaint: Illness Stated complaint: Illness with fever Time Seen by Provider: 10/18/18 10:32 Source: patient and family Mode of arrival: EMS Limitations: other (history of cerebellar degeneration and Asperger's ) History of Present Illness Onset (ago): week(s) 1 Radiation: non-radiation Pain Consistency: + intermittent Relieved By: + none Exacerbated By: + none Associated symptoms: + nausea/vomiting and + other (-diarrhea, -hematochezia, - melena) Treatments prior to arrival: none The patient is a 32 year old male who presents to the Emergency Room with complaints of an illness. He is accompanied by his Mother. Mom states the patient broke his foot just over 1 week ago. He came to the ED and was placed in a boot until Orthopedics could see him. The next day, he saw Dr. Archuleta from [facility] and was referred to [facility] for physical therapy. Yesterday, he did OT and PT and had a "great day". When the patient got to [facility] this morning to see the patient, she states he was slumped over in his chair and seemed very confused. He was also shaking "uncontrollably" on the right side, which Mom states is unusual. She reports she asked him if he knew who she was, and he didn't, which is also very unusual for him. Mom states the patient was incontinent of urine last night and his nurses told her he vomited once during the night. Mom denies any recent diarrhea or black or bloody stools. She notes he had a normal BM yesterday. He has been receiving Tylenol for his foot pain. Mom notes the patient has a history of cerebellar degeneration and his cognitive abilities have been progressively getting worse over the years. The patient can still move his toes and feel sensation in both feet. He is febrile on exam. HPI is limited secondary to the patients medical history. Home Medications Home Medications Medication Instructions Recorded Confirmed Type carbidopa-levodopa 1 tab PO BID 10/09/18 10/18/18 History propranolol 80 mg PO QAM 10/09/18 10/18/18 History acetaminophen [Tylenol] 650 mg PO Q4H PRN 10/18/18 10/18/18 History bisacodyl 10 mg ID DAILY PRN 10/18/18 10/18/18 History dextromethorphan-guaifenesin 1 tab PO Q12H 10/18/18 10/18/18 History [Mucinex DM] docusate sodium 100 mg PO BID 10/18/18 10/18/18 History enoxaparin [Lovenox] 40 mg SUBCUT DAILY 10/18/18 10/18/18 History magnesium hydroxide [Milk of 30 ml PO DAILY PRN 10/18/18 10/18/18 History Magnesia] ondansetron 4 mg PO Q4H PRN 10/18/18 10/18/18 History polyethylene glycol 3350 [Miralax] 17 g PO DAILY PRN 10/18/18 10/18/18 History sennosides-docusate sodium 1 tab PO DAILY PRN 10/18/18 10/18/18 History [Senokot-S] sodium phosphates [Fleet Enema 118 ml ID DAILY PRN 10/18/18 10/18/18 History Extra] Allergies Allergy/AdvReac Type Severity Reaction Status Date / Time No Known Allergies Allergy Unknown Verified 10/18/18 11:56 Past Med/Surg History Medical History Asperger syndrome Cerebellar ataxia Clayton disease No significant past surgical history Family History Mother No problems noted. Father Diabetes Other Cancer Social History Preferred Language: Guine[place] Communication Ability: Impaired Furnace Unloader Required: No Beliefs That Will Affect Care: None marital status details: single Current Living Situation: Parent and Family Current Living Situation Comment: lives with father current occupational status: disabled current occupation: none Other Information That Helps Us Care for You: No Feels Safe at Home: Yes Safety Concerns: Feels Safe At This Time Smoking Status: Never smoker Hx Alcohol Use: No Hx Substance Use: No Review of Systems See HPI for pertinent positives & negatives. Unobtainable due to cognitive status Physical Exam Vital Signs Vital Signs - 24 hr 10/18/18 20:00 10/18/18 20:05 10/18/18 23:55 Temperature 38.5 C H 37.0 C Temperature Source Axillary Oral Pulse Rate [Finger] 88 104 H Pulse Rhythm [Finger] Regular Pulse Strength [Finger] Normal Respiratory Rate 17 17 Respiratory Effort / Characteristics Non-Labored Non-Labored Respiratory Depth Normal Normal Respiratory Pattern Regular Blood Pressure [Left Arm] Blood Pressure [Right Arm] 129/85 120/69 Blood Pressure Mean [Left Arm] Blood Pressure Mean [Right Arm] 99 86 Blood Pressure Position [Right Arm] Lying Lying Pulse Oximetry 94 91 Oxygen Delivery Method Room Air Room Air Room Air Oxygen Flow Rate 10/19/18 02:38 10/19/18 05:37 10/19/18 07:54 Temperature 36.8 C 38.4 C H 36.8 C Temperature Source Oral Axillary Oral Pulse Rate [Finger] 76 102 H Pulse Rhythm [Finger] Pulse Strength [Finger] Respiratory Rate 17 18 Respiratory Effort / Characteristics Respiratory Depth Respiratory Pattern Blood Pressure [Left Arm] Blood Pressure [Right Arm] 134/79 113/62 Blood Pressure Mean [Left Arm] Blood Pressure Mean [Right Arm] 97 79 Blood Pressure Position [Right Arm] Lying Lying Pulse Oximetry 91 92 Oxygen Delivery Method Room Air Room Air Oxygen Flow Rate 10/19/18 10:59 10/19/18 11:14 10/19/18 15:24 Temperature 36.4 C L 36.9 C 37.1 C Temperature Source Oral Oral Axillary Pulse Rate [Finger] 69 65 81 Pulse Rhythm [Finger] Regular Pulse Strength [Finger] Normal Respiratory Rate 17 18 19 Respiratory Effort / Characteristics Non-Labored Respiratory Depth Normal Respiratory Pattern Blood Pressure [Left Arm] 129/76 Blood Pressure [Right Arm] 109/73 116/77 Blood Pressure Mean [Left Arm] 93 Blood Pressure Mean [Right Arm] 85 90 Blood Pressure Position [Right Arm] Lying Lying Lying Pulse Oximetry 94 79 L 95 Oxygen Delivery Method Room Air Nasal Cannula Room Air Oxygen Flow Rate 6 GENERAL: Patient is somnolent but arousable, well appearing, well nourished, no distress, non-toxic EYE EXAM: normal conjunctiva, PERRL and EOM's grossly intact OROPHARYNX: no exudate, no erythema, lips, buccal mucosa, and tongue normal and mucous membranes are moist NECK: supple, no nuchal rigidity, no adenopathy, non-tender LUNGS: Decreased breath sounds, no wheezing, rhonchi or rales. Normal chest wall mechanics HEART: no murmurs, S1 normal and S2 normal ABDOMEN: abdomen soft, non-tender, normo-active bowel sounds, no masses, no rebound or guarding. BACK: Back is symmetrical on inspection and there is no deformity, no midline tenderness, no CVA tenderness. SKIN: no rashes and no bruising UPPER EXTREMITIES: upper extremities are grossly normal. LOWER EXTREMITIES: No pitting edema. LLE is in walking boot, patient able to wiggle toes, normal sensation, normal capillary refill. NEURO EXAM: Normal sensorium, patient is somnolent but arousable and follows commands, cranial nerves II-XII intact, normal speech, no weakness of arms, no weakness of legs. Course 1040: Past medical records reviewed. The patient was evaluated in room C6, and a complete history and physical examination were performed. 1110: Nursing informed me the patient was given Tylenol at [facility] this morning prior to coming to the ED. 1312: I reevaluated the patient. He is resting comfortably. I discussed my recommendation he remain in the hospital for further evaluation and management and his parents verbalized complete understanding and agreement. 1357: I discussed the patients case with Dr. Cantor, [facility]. The patient will be further evaluated. Consultations Consultation #1: I discussed the patients case with Dr. Cantor [facility]. The patient will be further evaluated. Time: 13:57 Administered Medications Acetaminophen (Tylenol) 650 mg PO Q4H PRN PRN Reason: Pain Stop: 11/17/18 17:48 Last Admin: 10/19/18 13:51 Dose: 650 mg Documented by: [id number] Admin: 10/19/18 05:37 Dose: 650 mg Documented by: [id number] Admin: 10/18/18 19:30 Dose: 650 mg Documented by: [id number] Azithromycin (Zithromax) 250 mg PO QAM [facility] Stop: 10/26/18 08:59 Last Admin: 10/19/18 08:10 Dose: 250 mg Documented by: [id number] Carbidopa/Levodopa (Sinemet 25/100 Mg) 1 tab PO BID [facility] Stop: 11/17/18 20:59 Last Admin: 10/19/18 08:11 Dose: 1 tab Documented by: [id number] Admin: 10/18/18 20:10 Dose: 1 tab Documented by: [id number] Enoxaparin Sodium (Lovenox) 40 mg SQ DAILY [facility] Stop: 11/18/18 08:59 Last Admin: 10/19/18 08:10 Dose: 40 mg Documented by: [id number] Guaifenesin (Robitussin Sugar Free) 200 mg PO Q6H [facility] Stop: 11/17/18 17:59 Last Admin: 10/19/18 13:05 Dose: 200 mg Documented by: [id number] Admin: 10/19/18 05:37 Dose: Not Given Documented by: [id number] Admin: 10/19/18 00:02 Dose: Not Given Documented by: [id number] Admin: 10/18/18 20:10 Dose: 200 mg Documented by: [id number] Piperacillin Sod/Tazobactam (Sod 3.375 gm/ Dextrose) 115 mls @ 28.75 mls/hr IV Q8H [facility] Stop: 10/26/18 13:29 Last Admin: 10/19/18 13:48 Dose: 28.8 mls/hr Documented by: [id number] Pantoprazole Sodium 40 mg/ (Syringe) 10 mls @ 5 mls/min IV BID [facility] Stop: 11/18/18 08:59 Last Admin: 10/19/18 09:46 Dose: 5 mls/min Documented by: [id number] Ondansetron HCl (Zofran) 4 mg IV Q6H PRN PRN Reason: Nausea Stop: 11/17/18 17:48 Last Admin: 10/18/18 18:07 Dose: 4 mg Documented by: [id number] Pantoprazole Sodium (Protonix) 40 mg PO QAM [facility] Last Admin: 10/19/18 08:11 Dose: 40 mg Documented by: [id number] Admin: 10/18/18 20:10 Dose: 40 mg Documented by: [id number] Potassium Chloride (Klor-Con M20) 20 meq PO BID [facility] Stop: 10/20/18 09:01 Last Admin: 10/19/18 09:45 Dose: 20 meq Documented by: [id number] Propranolol HCl (Inderal La) 80 mg PO QAM [facility] Stop: 11/18/18 08:59 Last Admin: 10/19/18 08:11 Dose: 80 mg Documented by: [id number] Discontinued Medications Azithromycin (Zithromax) 500 mg PO NOW ONE Stop: 10/18/18 17:50 Last Admin: 10/18/18 21:14 Dose: 500 mg Documented by: [id number] Sodium Chloride (Nss 1000ml) 1,000 mls @ 999 mls/hr IV .Q1H1M ONE Stop: 10/18/18 11:49 Last Infusion: 10/18/18 12:45 Dose: 0 mls/hr Documented by: [id number] Admin: 10/18/18 11:05 Dose: 999 mls/hr Documented by: [id number] Acetaminophen (Ofirmev) 1,000 mg in 100 mls @ 400 mls/hr IV NOW STA Stop: 10/18/18 11:09 Last Admin: 10/18/18 11:21 Dose: Not Given Documented by: [id number] Sodium Chloride (Nss 1000ml) 1,000 mls @ 999 mls/hr IV .Q1H1M ONE Stop: 10/18/18 12:54 Last Infusion: 10/18/18 14:41 Dose: 0 mls/hr Documented by: [id number] Admin: 10/18/18 12:56 Dose: 999 mls/hr Documented by: [id number] Piperacillin Sod/Tazobactam Sod (Zosyn) 4.5 gm in 120 mls @ 240 mls/hr IV NOW ONE Stop: 10/18/18 14:01 Last Infusion: 10/18/18 14:15 Dose: 0 mls/hr Documented by: [id number] Admin: 10/18/18 13:42 Dose: 240 mls/hr Documented by: [id number] Vancomycin HCl 1,250 mg/ (Sodium Chloride) 525 mls @ 200 mls/hr IV NOW ONE Stop: 10/18/18 16:09 Last Infusion: 10/18/18 18:00 Dose: 0 mls/hr Documented by: [id number] Admin: 10/18/18 14:30 Dose: 200 mls/hr Documented by: [id number] Pantoprazole Sodium 40 mg/ (Syringe) 10 mls @ 5 mls/min IV NOW ONE Stop: 10/18/18 13:54 Last Admin: 10/18/18 14:30 Dose: 5 mls/min Documented by: [id number] Potassium Chloride/Sodium Chloride (Normal Saline W/20 Meq Kcl) 20 meq in 1,000 mls @ 100 mls/hr IV .Q10H MARCELINO Stop: 10/19/18 13:48 Last Admin: 10/19/18 05:30 Dose: 100 mls/hr Documented by: [id number] Infusion: 10/19/18 05:29 Dose: 0 mls/hr Documented by: [id number] Infusion: 10/19/18 02:30 Dose: 0 mls/hr Documented by: [id number] Admin: 10/18/18 18:33 Dose: 100 mls/hr Documented by: [id number] Piperacillin Sod/Tazobactam (Sod 3.375 gm/ Dextrose) 115 mls @ 28.75 mls/hr IV Q8H MARCELINO Stop: 10/25/18 17:59 Last Infusion: 10/19/18 05:32 Dose: 28.8 mls/hr Documented by: [id number] Infusion: 10/19/18 02:31 Dose: 0 mls/hr Documented by: [id number] Admin: 10/19/18 02:08 Dose: 28.8 mls/hr Documented by: [id number] Infusion: 10/18/18 22:30 Dose: 0 mls/hr Documented by: [id number] Admin: 10/18/18 18:33 Dose: 28.8 mls/hr Documented by: [id number] Vancomycin HCl 1,000 mg/ (Sodium Chloride) 270 mls @ 125 mls/hr IV Q10H MARCELINO Stop: 10/26/18 00:00 Last Infusion: 10/19/18 13:15 Dose: 0 mls/hr Documented by: [id number] Admin: 10/19/18 11:05 Dose: 125 mls/hr Documented by: [id number] Infusion: 10/19/18 02:09 Dose: 0 mls/hr Documented by: [id number] Admin: 10/18/18 23:46 Dose: 125 mls/hr Documented by: [id number] Magnesium Sulfate/Dextrose (Magnesium Sulfate / D5w) 1 gm in 100 mls @ 100 mls/hr IV Q1H MARCELINO Stop: 10/18/18 22:44 Last Infusion: 10/18/18 23:15 Dose: 0 mls/hr Documented by: [id number] Admin: 10/18/18 22:16 Dose: 100 mls/hr Documented by: [id number] Infusion: 10/18/18 22:09 Dose: 100 mls/hr Documented by: [id number] Admin: 10/18/18 21:09 Dose: 100 mls/hr Documented by: [id number] Magnesium Sulfate/Dextrose (Magnesium Sulfate / D5w) 1 gm in 100 mls @ 100 mls/hr IV 0900 ONE Stop: 10/19/18 09:59 Last Admin: 10/19/18 09:46 Dose: 100 mls/hr Documented by: [id number] Potassium Chloride (K Enrique / Wtr) 10 meq in 100 mls @ 100 mls/hr IV Q1H MARCELINO Stop: 10/19/18 12:59 Last Admin: 10/19/18 13:03 Dose: 100 mls/hr Documented by: [id number] Infusion: 10/19/18 13:02 Dose: 100 mls/hr Documented by: [id number] Admin: 10/19/18 12:02 Dose: 100 mls/hr Documented by: [id number] Infusion: 10/19/18 12:02 Dose: 100 mls/hr Documented by: [id number] Admin: 10/19/18 11:05 Dose: 100 mls/hr Documented by: [id number] Ioversol (Optiray 320 125ml) 118 ml IV ONCE PRN PRN Reason: Interaction Checking Stop: 10/22/18 12:46 Last Admin: 10/18/18 12:47 Dose: 118 ml Documented by: [id number] Ketorolac Tromethamine (Toradol) 15 mg IV NOW STA Stop: 10/18/18 13:33 Last Admin: 10/18/18 13:42 Dose: 15 mg Documented by: [id number] Miscellaneous Information (Consult) 1 ea N/A UD ONE Stop: 10/18/18 13:33 Last Admin: 10/18/18 14:41 Dose: Not Given Documented by: [id number] Potassium Chloride (Klor-Con M10) 40 meq PO NOW STA Stop: 10/18/18 17:50 Last Admin: 10/18/18 21:13 Dose: 40 meq Documented by: [id number] Medical Decision Making Differential Diagnosis Differential diagnosis: Etiologies such as viral syndrome, otitis, pharyngitis, pneumonia, influenza, meningitis, urinary tract infection, sepsis, bacteremia, as well as others were entertained. Medical Records Attestation: I reviewed the patient's medical records. Home Medications Current Medication List: was personally reviewed by me Laboratory Data Attestation: I reviewed the patient's lab results. Result diagrams: 10/19/18 05:29 10/19/18 05:29 Lab Results 03/10/18/18 10/18/18 Range/Units 11:05 11:05 11:05 WBC 12.45 H (4.8-10.8) K/uL RBC 5.02 (4.7-6.1) M/uL Hgb 15.8 (14.0-18.0) g/dL Hct 43.4 (42-52) % MCV 86.5 (80-100) fL MCH 31.5 (25-34) pg MCHC 36.4 H (32-36) g/dL RDW Std Deviation 40.6 (36.4-46.3) fL RDW Coeff of Ian 12.8 (11.5-14.5) % Plt Count 188 (130-400) K/uL MPV 8.1 (7.4-10.4) fL Immature Gran % (Auto) 0.5 % Neut % (Auto) 89.4 % Lymph % (Auto) 3.5 % [place] % (Auto) 6.3 % Eos % (Auto) 0.2 % Baso % (Auto) 0.1 % Immature Gran # (Auto) 0.06 H (0.00-0.02) K/uL Neut # (Auto) 11.15 H (1.4-6.5) K/uL Lymph # (Auto) 0.43 L (1.2-3.4) K/uL [place] # (Auto) 0.78 H (0.11-0.59) K/uL Eos # (Auto) 0.02 (0-0.5) K/uL Baso # (Auto) 0.01 (0-0.2) K/uL PT 10.8 (9.0-12.0) Seconds INR 1.1 (0.9-1.1) Sodium 139 (136-145) mmol/L Potassium 3.3 L (3.5-5.1) mmol/L Chloride 109 H (98-107) mmol/L Carbon Dioxide 22 (21-32) mmol/L Anion Gap 8.0 (3-11) BUN 12 (7-18) mg/dl Creatinine 0.79 (0.6-1.4) mg/dl Est Cr Clr Drug Dosing 117.9 ml/min Est GFR ( Amer) 138.7 Est GFR (Non-Af Amer) 119.7 BUN/Creatinine Ratio 15.2 (10-20) Glucose 109 H (70-99) mg/dl Lactate (0.4-2.0) mmol/L Calcium 8.6 (8.5-10.1) mg/dl Magnesium (1.8-2.4) mg/dl Total Bilirubin 3.5 H (0.2-1) mg/dl Direct Bilirubin (0-0.2) mg/dl AST 22 (15-37) U/L ALT 22 (12-78) U/L Alkaline Phosphatase 132 H (45-117) U/L Troponin I < 0.015 (0-0.045) ng/ml Total Protein 7.4 (6.4-8.2) gm/dl Albumin 3.7 (3.4-5.0) gm/dl Globulin 3.7 (2.5-4.0) gm/dl Albumin/Globulin Ratio 1.0 (0.9-2) Lipase 171 (73-393) U/L 25-OH Vitamin D Total (30-100) ng/ml Procalcitonin (0-0.5) ng/ml Urine Color Urine Appearance (Clear) Urine pH (4.5-7.5) Ur Specific [place] (1.000-1.030) Urine Protein (Negative) Urine Glucose (UA) (Negative) Urine Ketones (Negative) Urine Blood (Negative) Urine Nitrite (Negative) Urine Bilirubin (Negative) Urine Urobilinogen (Negative) Ur Leukocyte Esterase (Negative) Nasal Screen MRSA (PCR) (Negative) Stl C. diff Tox B Gene (Neg) Influenza Type A (PCR) (Neg) Influenza Type B (PCR) (Neg) 10/18/18 10/18/18 10/18/18 Range/Units 11:05 11:05 11:05 WBC (4.8-10.8) K/uL RBC (4.7-6.1) M/uL Hgb (14.0-18.0) g/dL Hct (42-52) % MCV (80-100) fL MCH (25-34) pg MCHC (32-36) g/dL RDW Std Deviation (36.4-46.3) fL RDW Coeff of Ian (11.5-14.5) % Plt Count (130-400) K/uL MPV (7.4-10.4) fL Immature Gran % (Auto) % Neut % (Auto) % Lymph % (Auto) % [place] % (Auto) % Eos % (Auto) % Baso % (Auto) % Immature Gran # (Auto) (0.00-0.02) K/uL Neut # (Auto) (1.4-6.5) K/uL Lymph # (Auto) (1.2-3.4) K/uL [place] # (Auto) (0.11-0.59) K/uL Eos # (Auto) (0-0.5) K/uL Baso # (Auto) (0-0.2) K/uL PT (9.0-12.0) Seconds INR (0.9-1.1) Sodium (136-145) mmol/L Potassium (3.5-5.1) mmol/L Chloride (98-107) mmol/L Carbon Dioxide (21-32) mmol/L Anion Gap (3-11) BUN (7-18) mg/dl Creatinine (0.6-1.4) mg/dl Est Cr Clr Drug Dosing ml/min Est GFR ( Amer) Est GFR (Non-Af Amer) BUN/Creatinine Ratio (10-20) Glucose (70-99) mg/dl Lactate 2.2 H* (0.4-2.0) mmol/L Calcium (8.5-10.1) mg/dl Magnesium (1.8-2.4) mg/dl Total Bilirubin (0.2-1) mg/dl Direct Bilirubin (0-0.2) mg/dl AST (15-37) U/L ALT (12-78) U/L Alkaline Phosphatase (45-117) U/L Troponin I (0-0.045) ng/ml Total Protein (6.4-8.2) gm/dl Albumin (3.4-5.0) gm/dl Globulin (2.5-4.0) gm/dl Albumin/Globulin Ratio (0.9-2) Lipase (73-393) U/L 25-OH Vitamin D Total (30-100) ng/ml Procalcitonin 1.42 H (0-0.5) ng/ml Urine Color Urine Appearance (Clear) Urine pH (4.5-7.5) Ur Specific [place] (1.000-1.030) Urine Protein (Negative) Urine Glucose (UA) (Negative) Urine Ketones (Negative) Urine Blood (Negative) Urine Nitrite (Negative) Urine Bilirubin (Negative) Urine Urobilinogen (Negative) Ur Leukocyte Esterase (Negative) Nasal Screen MRSA (PCR) (Negative) Stl C. diff Tox B Gene (Neg) Influenza Type A (PCR) Neg for Influ A (Neg) Influenza Type B (PCR) Neg for Influ B (Neg) 10/18/18 10/18/18 10/18/18 Range/Units 11:05 18:10 22:05 WBC (4.8-10.8) K/uL RBC (4.7-6.1) M/uL Hgb (14.0-18.0) g/dL Hct (42-52) % MCV (80-100) fL MCH (25-34) pg MCHC (32-36) g/dL RDW Std Deviation (36.4-46.3) fL RDW Coeff of Ian (11.5-14.5) % Plt Count (130-400) K/uL MPV (7.4-10.4) fL Immature Gran % (Auto) % Neut % (Auto) % Lymph % (Auto) % [place] % (Auto) % Eos % (Auto) % Baso % (Auto) % Immature Gran # (Auto) (0.00-0.02) K/uL Neut # (Auto) (1.4-6.5) K/uL Lymph # (Auto) (1.2-3.4) K/uL [place] # (Auto) (0.11-0.59) K/uL Eos # (Auto) (0-0.5) K/uL Baso # (Auto) (0-0.2) K/uL PT (9.0-12.0) Seconds INR (0.9-1.1) Sodium (136-145) mmol/L Potassium (3.5-5.1) mmol/L Chloride (98-107) mmol/L Carbon Dioxide (21-32) mmol/L Anion Gap (3-11) BUN (7-18) mg/dl Creatinine (0.6-1.4) mg/dl Est Cr Clr Drug Dosing ml/min Est GFR ( Amer) Est GFR (Non-Af Amer) BUN/Creatinine Ratio (10-20) Glucose (70-99) mg/dl Lactate (0.4-2.0) mmol/L Calcium (8.5-10.1) mg/dl Magnesium 1.7 L (1.8-2.4) mg/dl Total Bilirubin (0.2-1) mg/dl Direct Bilirubin (0-0.2) mg/dl AST (15-37) U/L ALT (12-78) U/L Alkaline Phosphatase (45-117) U/L Troponin I (0-0.045) ng/ml Total Protein (6.4-8.2) gm/dl Albumin (3.4-5.0) gm/dl Globulin (2.5-4.0) gm/dl Albumin/Globulin Ratio (0.9-2) Lipase (73-393) U/L 25-OH Vitamin D Total (30-100) ng/ml Procalcitonin (0-0.5) ng/ml Urine Color Urine Appearance (Clear) Urine pH (4.5-7.5) Ur Specific [place] (1.000-1.030) Urine Protein (Negative) Urine Glucose (UA) (Negative) Urine Ketones (Negative) Urine Blood (Negative) Urine Nitrite (Negative) Urine Bilirubin (Negative) Urine Urobilinogen (Negative) Ur Leukocyte Esterase (Negative) Nasal Screen MRSA (PCR) Negative (Negative) Stl C. diff Tox B Gene Negative Cdiff Gene (Neg) Influenza Type A (PCR) (Neg) Influenza Type B (PCR) (Neg) 10/18/18 10/19/18 10/19/18 Range/Units 22:45 05:29 05:29 WBC 10.80 (4.8-10.8) K/uL RBC 4.38 L (4.7-6.1) M/uL Hgb 13.5 L (14.0-18.0) g/dL Hct 37.9 L (42-52) % MCV 86.5 (80-100) fL MCH 30.8 (25-34) pg MCHC 35.6 (32-36) g/dL RDW Std Deviation 40.0 (36.4-46.3) fL RDW Coeff of Ian 12.5 (11.5-14.5) % Plt Count 174 (130-400) K/uL MPV 8.2 (7.4-10.4) fL Immature Gran % (Auto) % Neut % (Auto) % Lymph % (Auto) % [place] % (Auto) % Eos % (Auto) % Baso % (Auto) % Immature Gran # (Auto) (0.00-0.02) K/uL Neut # (Auto) (1.4-6.5) K/uL Lymph # (Auto) (1.2-3.4) K/uL [place] # (Auto) (0.11-0.59) K/uL Eos # (Auto) (0-0.5) K/uL Baso # (Auto) (0-0.2) K/uL PT (9.0-12.0) Seconds INR (0.9-1.1) Sodium 139 (136-145) mmol/L Potassium 3.1 L (3.5-5.1) mmol/L Chloride 111 H (98-107) mmol/L Carbon Dioxide 23 (21-32) mmol/L Anion Gap 5.0 (3-11) BUN 6 L D (7-18) mg/dl Creatinine 0.67 (0.6-1.4) mg/dl Est Cr Clr Drug Dosing 144.2 ml/min Est GFR ( Amer) 148.4 Est GFR (Non-Af Amer) 128.0 BUN/Creatinine Ratio 8.5 L (10-20) Glucose 99 (70-99) mg/dl Lactate (0.4-2.0) mmol/L Calcium 7.5 L (8.5-10.1) mg/dl Magnesium (1.8-2.4) mg/dl Total Bilirubin (0.2-1) mg/dl Direct Bilirubin (0-0.2) mg/dl AST (15-37) U/L ALT (12-78) U/L Alkaline Phosphatase (45-117) U/L Troponin I (0-0.045) ng/ml Total Protein (6.4-8.2) gm/dl Albumin (3.4-5.0) gm/dl Globulin (2.5-4.0) gm/dl Albumin/Globulin Ratio (0.9-2) Lipase (73-393) U/L 25-OH Vitamin D Total (30-100) ng/ml Procalcitonin (0-0.5) ng/ml Urine Color Yellow Urine Appearance Clear (Clear) Urine pH 6.5 (4.5-7.5) Ur Specific [place] > 1.045 H (1.000-1.030) Urine Protein Negative (Negative) Urine Glucose (UA) Negative (Negative) Urine Ketones Negative (Negative) Urine Blood Negative (Negative) Urine Nitrite Negative (Negative) Urine Bilirubin Negative (Negative) Urine Urobilinogen Negative (Negative) Ur Leukocyte Esterase Negative (Negative) Nasal Screen MRSA (PCR) (Negative) Stl C. diff Tox B Gene (Neg) Influenza Type A (PCR) (Neg) Influenza Type B (PCR) (Neg) 10/19/18 10/19/18 10/19/18 Range/Units 05:29 05:29 05:29 WBC (4.8-10.8) K/uL RBC (4.7-6.1) M/uL Hgb (14.0-18.0) g/dL Hct (42-52) % MCV (80-100) fL MCH (25-34) pg MCHC (32-36) g/dL RDW Std Deviation (36.4-46.3) fL RDW Coeff of Ian (11.5-14.5) % Plt Count (130-400) K/uL MPV (7.4-10.4) fL Immature Gran % (Auto) % Neut % (Auto) % Lymph % (Auto) % [place] % (Auto) % Eos % (Auto) % Baso % (Auto) % Immature Gran # (Auto) (0.00-0.02) K/uL Neut # (Auto) (1.4-6.5) K/uL Lymph # (Auto) (1.2-3.4) K/uL [place] # (Auto) (0.11-0.59) K/uL Eos # (Auto) (0-0.5) K/uL Baso # (Auto) (0-0.2) K/uL PT (9.0-12.0) Seconds INR (0.9-1.1) Sodium (136-145) mmol/L Potassium (3.5-5.1) mmol/L Chloride (98-107) mmol/L Carbon Dioxide (21-32) mmol/L Anion Gap (3-11) BUN (7-18) mg/dl Creatinine (0.6-1.4) mg/dl Est Cr Clr Drug Dosing ml/min Est GFR ( Amer) Est GFR (Non-Af Amer) BUN/Creatinine Ratio (10-20) Glucose (70-99) mg/dl Lactate 1.1 (0.4-2.0) mmol/L Calcium (8.5-10.1) mg/dl Magnesium (1.8-2.4) mg/dl Total Bilirubin 3.5 H (0.2-1) mg/dl Direct Bilirubin 0.3 H (0-0.2) mg/dl AST 19 (15-37) U/L ALT 32 (12-78) U/L Alkaline Phosphatase 109 (45-117) U/L Troponin I (0-0.045) ng/ml Total Protein 6.0 L (6.4-8.2) gm/dl Albumin 2.9 L (3.4-5.0) gm/dl Globulin (2.5-4.0) gm/dl Albumin/Globulin Ratio (0.9-2) Lipase (73-393) U/L 25-OH Vitamin D Total 17.2 L (30-100) ng/ml Procalcitonin (0-0.5) ng/ml Urine Color Urine Appearance (Clear) Urine pH (4.5-7.5) Ur Specific [place] (1.000-1.030) Urine Protein (Negative) Urine Glucose (UA) (Negative) Urine Ketones (Negative) Urine Blood (Negative) Urine Nitrite (Negative) Urine Bilirubin (Negative) Urine Urobilinogen (Negative) Ur Leukocyte Esterase (Negative) Nasal Screen MRSA (PCR) (Negative) Stl C. diff Tox B Gene (Neg) Influenza Type A (PCR) (Neg) Influenza Type B (PCR) (Neg) Imaging Data Radiologist's Impression: Radiology results as stated below per my review and the radiologist's interpretation: XR chest 1V portable HISTORY: Sepsis COMPARISON: Chest 05/03/2016. FINDINGS: No pneumothorax. No pleural effusions. The heart remains mildly enlarged. Mild diffuse interstitial thickening persists. No new focal lung consolidations. IMPRESSION: No change in the mild cardiomegaly and chronic interstitial thickening. Electronically signed by: Dariel Medley M.D. 10/18/2018 11:[address] CT DOSE: 844.54 mGycm HISTORY: Altered mental status. TECHNIQUE: Multiaxial CT images of the head were performed without the use of intravenous contrast. Automated exposure control was utilized for this study. A dose lowering technique was utilized adhering to the principles of ALARA. Comparison: Head CT 10/09/2018. Findings: The paranasal sinuses and mastoid air cells are clear. The calvarium and skull base are intact. The ventricles and sulci are within normal limits. There is no mass, hematoma, midline shift, or acute infarct. No change in the hypodensity within the bilateral cerebellar hemispheres. 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 Impression: No significant change compared to the prior study. No acute intracranial abnormality. Electronically signed by: Dariel Medley M.D. 10/18/2018 1:14 PM CHEST CTA for PULMONARY ARTERIES CT DOSE: 1107.72 mGycm HISTORY: Altered mental status. Atypical chest pain. TECHNIQUE: Multiaxial CT images of the chest were performed following the i ntravenous administration of contrast to evaluate the pulmonary arteries. Maximal intensity projection images were also obtained. A dose lowering technique was utilized adhering to the principles of ALARA. COMPARISON STUDY: Chest CT 02/04/2007. FINDINGS: Normal caliber thoracic aorta with no evidence for dissection. The heart is borderline enlarged. No pleural or pericardial effusions. Subcentimeter right thyroid nodule. No mediastinal or hilar lymphadenopathy. Mild diffuse thickening of the esophagus with adjacent fat stranding. Respiratory motion artifact in suboptimal contrast opacification results in nondiagnostic evaluation within the majority of the segmental and subsegmental pulmonary arteries. However, the main and lobar pulmonary arteries appear patent. No evidence for pulmonary embolus. No fractures within the visualized osseous structures. No pneumothorax. The central airways are patent. Small patchy densities within the lower lobe posteriorly. There are also tree-in-bud g roundglass nodular airspace opacities seen within the bilateral lower lobes and posteriorly within the lingula and right middle lobe. This is consistent with an infectious bronchiolitis. IMPRESSION: 1. No evidence for pulmonary embolus with limitations as described above. 2. There are tree-in-bud groundglass nodular airspace opacities seen within the bilateral lower lobes and posteriorly within the lingula and right middle lobe. This is consistent with an infectious bronchiolitis and may be due to aspiration.. 3. Mild diffuse esophageal wall thickening consistent with a nonspecific esophagitis. Electronically signed by: Dariel Medley M.D. 10/18/2018 1:34 PM ABDOMEN AND PELVIS CT WITH IV CONTRAST CT DOSE: HISTORY: fever, ams, urinary incontinence, elevated bilirubin TECHNIQUE: Multiaxial CT images of the abdomen and pelvis were performed following the use of intravenous contrast. A dose lowering technique was utilized adhering to the principles of ALARA. COMPARISON STUDY: Abdomen CT 02/07/2007. FINDINGS: No pneumoperitoneum. No pneumatosis. No fractures within the visualized osseous structures. The liver, gallbladder, pancreas, and adrenal glands are unremarkable. There are streak artifact obscuring the upper abdominal structures. However, the kidneys appear to enhance normally. No hydronephrosis. No retroperitoneal lymphadenopathy. No dilated loops of small bowel to suggest an obstruction. Punctate calcifications along the left posterior bladder wall. These could represent small bladder stones. Fluid-filled colon. There is mild thickening and pericolonic fat stranding throughout the majority of the colon. Normal appendix. IMPRESSION: 1. Mild thickening throughout the majority of the colon. The colon is fluid- filled. Therefore, this is consistent with a nonspecific colitis and is likely due to an infectious or inflammatory process. 2. No evidence for bowel obstruction. 3. Normal appendix. 4. Please refer to the same day chest CT for further evaluation of the lung bases. Electronically signed by: Dariel Medley M.D. 10/18/2018 1:40 PM ECG Data Attestation: I personally reviewed and interpreted this ECG as follows: Indication: weakness Rate (beats per minute): 118 Findings: + other (normal axis, normal intervals); no acute ischemic change and no ectopy Blood Pressure Blood Pressure Findings: Normal blood pressure Blood Pressure Disposition: did not require urgent referral MDM Narrative Patient here initially ill-appearing and concern for evolving sepsis. Given her reported vomiting overnight and ill appearance here, concern for possible aspiration. Patient's lactic acid and pro-calcitonin elevated also which were concerning for sepsis. No evidence of other acute [employer]ON[employer] TECH[employer]ICIAN pathology contributing to altered mental status. Patient does have cognitive deficits at baseline, however was worse than his normal according to family at bedside. I believe this is more likely secondary to his infectious process. Patient found on CT to have findings concerning for possible evolving pneumonia or aspiration, as well as colitis on CT the abdomen and pelvis. Culture sent and patient given broad- spectrum antibiotics. Patient hemodynamically stable throughout. Heart rate improved with additional IV fluids. Patient's fever improved with antipyretics, and patient more awake and alert by the time he was transferred upstairs to the inpatient floor. Case discussed with hospitalist. Patient's family made aware of all results were in agreement with land. Impression & Plan Sepsis, Pneumonia, Esophagitis, Altered mental status, Colitis, Hypomagnesemia, Acute hypokalemia Critical Care Time I have personally spent 35 minutes of critical care time in the direct management of this patient. This includes bedside care, interpretation of diagnostic studies, and testing, discussion with consultants, patient, and f amily members, and other required patient management activities. This 35 minutes is in excess of all separately billable procedures. Critical Care Time: Yes Total Critical Care Time: 35 Discharge Plan Visit Data *Final* Discharge Date/Time: 10/18/18 15:38 Chief Complaint: Illness Stated Complaint: Illness with fever ED Provider: Becca Reyez Discharge Problem: Sepsis, Pneumonia, Esophagitis, Altered mental status, Colitis, Hypomagnesemia, Acute hypokalemia Patient Disposition: Admitted As Inpatient Condition: Fair Discharge Instructions Interventions: ED Discharge Assessment Last Done: 10/18/18 15:38 The scribe's documentation has been prepared under my direction and personally reviewed by me in its entirety. I confirm that the note above accurately reflects all work, treatment, procedures, and medical decision making performed by me.
[2018-10-20] MEDS: guaiFENesin SUGAR FREE 200 MG/10 ML UDC PO SCH ×5 (00:05→23:28)
[2018-10-20] MEDS: PIPERACILLIN/TAZOBACTAM 3.375 GM in DEXTROSE 5% 100 ML IV SCH ×3 (05:40→20:11)
[2018-10-20 07:22] LABS: Alanine Aminotransferase 24 U/L (12-78); Alkaline Phosphatase 102 U/L (45-117); Aspartate Aminotransferase 17 U/L (15-37); Bilirubin Direct 0.4 mg/dl (0-0.2); Bilirubin,Total 3.4 mg/dl (0.2-1); Creatinine Clr Calc Pharmacy 159.5 ml/min; Est GFR (African American) > 150.0; Est GFR (Non-African American) 135.9; Magnesium 1.9 mg/dl (1.8-2.4); Total Protein 6.4 gm/dl (6.4-8.2)
[2018-10-20] MEDS: PANTOprazole 40 MG in SYRINGE 0 ML IV SCH (08:07)
[2018-10-20] MEDS: CARBIDOPA/LEVODOPA 25/100MG TAB PO SCH ×2 (08:07→20:12)
[2018-10-20] MEDS: PROPRANOLOL HCL LA 80 MG CAPCR PO SCH (08:07)
[2018-10-20] MEDS: POTASSIUM CHLORIDE 20 MEQ TABCR PO SCH (08:07)
[2018-10-20] MEDS: AZITHROMYCIN 250 MG TAB PO SCH (08:07)
[2018-10-20] MEDS: ENOXAPARIN INJ 40 MG/0.4 ML SYR SQ SCH (08:09)
--- NOTE | 2018-10-20 15:49 | Hospitalist Progress Note ---
Date of Service October 20, 2018 Assessment & Plan (1) Sepsis: Suspect pneumonia although ct findings show some colitis, no clinical symptoms Flu testing negative. Send u/a and urine culture. Follow blood cultures. zosyn & azithromax continued is clinically improving Vancomycin stopped as nasal MRSA swab was negative (2) Pneumonia: Zosyn/zithromax. Was just hospitalized last week so need to cover hospital-acquired pathogens. Negative MRSA swab. CTA . No evidence for pulmonary embolus with limitations as described above. There are tree-in-bud groundglass nodular airspace opacities seen within the bilateral lower lobes and posteriorly within the lingula and right middle lobe. This is consistent with an infectious bronchiolitis and may be due to aspiration.. Speech therapy has evaluated the patient and will consider a video swallowing Mild diffuse esophageal wall thickening consistent with a nonspecific esophagitis. Although the patient has no complaints of this (3) Foot fracture, left: 2nd to fall; was hospitalized for this about 1 week ago. Multiple fractures are present in the left foot. Continue walking boot. Can bear weight as tolerated in that boot. PT OT evaluation Check vitamin D level in am. (4) Altered mental status: [facility] when he spiked a fever. metabolic encephalopathy 2nd to infection this is cleared with antibiotic use. (5) Abnormal CT of the abdomen: CT abdomen shows Mild thickening throughout the majority of the colon. The colon is fluid-filled. Therefore, this is consistent with a nonspecific colitis and is likely due to an infectious or inflammatory process. No evidence for bowel obstruction, Normal appendix., does not have abdominal pain, diarrhea, etc. Check c. diff if he begins to have loose stools. (6) Abnormal movement of lower extremity: His mother noted shaking of the right arm and right leg for 1-2 hours this AM at [facility]. He was sleepy but awake during this time. He had a concomitant fever at that time as well. EEG just to make sure this was not a focal seizure. The symptoms are not present on my examination 10/19 (7) Cerebellar degeneration: Chronic, awaiting work-up at the [facility] for this. Dr. Barone documented brisk reflexes and upper motor neuron signs when he was consulted at his last admission. My exam findings are similar to Dr. Barone's. Fall precautions. 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 See above. Cont carbidopa-levodopa. (9) Asperger's syndrome: chronic, long-standing. (10) Esophagitis: as noted on CT today. pt's father notes patient has frequent hiccups at home. he also drinks alcohol fairly regularly. start PPI daily. may need endoscopic evaluation after discharge. (11) DVT prophylaxis: lovenox 40mg daily. Subjective Patient feels improved less coughing less respiratory distress. Mother is at the bedside and updated he is transitioned from telemetry to medical floor Review of Systems ROS: well nourished well developed. He is developmentally delayed No double vision blurry vision No problems with speech or swallowing No palpitations, chest pain or pressure Having coughing and dyspnea on exertion No abdominal pain nausea vomiting diarrhea changes in appetite or weight No burning urine urine frequency or changes in color No focal joint pain or muscle pain No skin rashes or oral lesions No unusual bruising or bleeding No focused back pain or numbness or loss of strength No changes in memory or confusion Physical Exam Vital Signs (Past 24 Hours): Last Vital Signs Temp 37.0 C 10/20/18 15:42 Pulse 70 10/20/18 15:42 Resp 18 10/20/18 15:42 BP 117/74 10/20/18 15:42 Pulse Ox 95 10/20/18 15:42 The patient appeared well nourished and normally developed. His slowed mentation and response Vital signs as documented. Head exam is unremarkable. normocephalic, atraumatic Neck is without jugular venous distension, thyromegaly, or lymphademopathy Lungs are diminished at the bases more clear at the apex Cardiac exam reveals Rhythm is regular. First and second heart sounds normal. Abdominal exam reveals normal bowel sounds, no masses, no organomegaly Extremities are nonedematous and both pedal pulses are present Neurologic exam is A&Ox2, patient has slow mentation and bradykinetic Skin is warm Dry without bruises or lesions (1) Sepsis Sepsis type: sepsis due to unspecified organism Qualified Code(s): A41.9 - Sepsis, unspecified organism (2) Pneumonia Pneumonia type: due to unspecified organism Laterality: bilateral Lung location: lower lobe of lung Qualified Code(s): J18.1 - Lobar pneumonia, unspecified organism (3) Foot fracture, left Encounter type: initial encounter Fracture type: closed Qualified Code(s): S92.902A - Unspecified fracture of left foot, initial encounter for closed fracture (4) Altered mental status Altered mental status type: disorientation Qualified Code(s): R41.0 - Disorientation, unspecified
[2018-10-20] MEDS: ONDANSETRON INJ 2 MG/ML 2 ML VIAL IV PRN (17:19)
[2018-10-20] MEDS: ACETAMINOPHEN 325 MG TAB PO PRN (20:11)
[2018-10-20] MEDS: PANTOprazole 40 MG TAB PO SCH (20:12)
[2018-10-21] MEDS: PIPERACILLIN/TAZOBACTAM 3.375 GM in DEXTROSE 5% 100 ML IV SCH ×3 (05:57→20:01)
[2018-10-21] MEDS: guaiFENesin SUGAR FREE 200 MG/10 ML UDC PO SCH ×4 (05:58→23:35)
[2018-10-21] MEDS: CARBIDOPA/LEVODOPA 25/100MG TAB PO SCH ×2 (07:23→20:01)
[2018-10-21] MEDS: AZITHROMYCIN 250 MG TAB PO SCH (07:23)
[2018-10-21] MEDS: PANTOprazole 40 MG TAB PO SCH ×2 (07:24→20:02)
[2018-10-21] MEDS: ENOXAPARIN INJ 40 MG/0.4 ML SYR SQ SCH (07:24)
[2018-10-21] MEDS: PROPRANOLOL HCL LA 80 MG CAPCR PO SCH (07:24)
[2018-10-21 10:50] LABS: Est GFR (African American) 142.5; Est GFR (Non-African American) 122.9
[2018-10-22] MEDS: PIPERACILLIN/TAZOBACTAM 3.375 GM in DEXTROSE 5% 100 ML IV SCH ×3 (05:36→20:32)
[2018-10-22] MEDS: guaiFENesin SUGAR FREE 200 MG/10 ML UDC PO SCH ×4 (05:37→23:37)
[2018-10-22] MEDS: PANTOprazole 40 MG TAB PO SCH ×2 (07:48→20:32)
[2018-10-22] MEDS: AZITHROMYCIN 250 MG TAB PO SCH (07:48)
[2018-10-22] MEDS: CARBIDOPA/LEVODOPA 25/100MG TAB PO SCH ×2 (07:48→20:32)
[2018-10-22] MEDS: PROPRANOLOL HCL LA 80 MG CAPCR PO SCH (07:49)
[2018-10-22] MEDS: ENOXAPARIN INJ 40 MG/0.4 ML SYR SQ SCH (07:49)
[2018-10-22] MEDS: ONDANSETRON INJ 2 MG/ML 2 ML VIAL IV PRN (08:37)
--- NOTE | 2018-10-22 11:53 | Hospitalist Progress Note ---
Date of Service October 21, 2018 Assessment & Plan (1) Sepsis: Suspect pneumonia although ct findings show some colitis, no clinical symptoms Flu testing negative. Send u/a and urine culture. Follow blood cultures. zosyn & azithromax continued is clinically improving Vancomycin stopped as nasal MRSA swab was negative. Patient continues to show improvement each day. (10/21) Anticipate discharge soon, however will need to run with community case manager and recheck with father is it really is safe to bring patient home and foregoe rehab. (2) Pneumonia: Zosyn/zithromax. Was just hospitalized last week so need to cover hospital-acquired pathogens. Negative MRSA swab. CTA . No evidence for pulmonary embolus with limitations as described above. There are tree-in-bud groundglass nodular airspace opacities seen within the bilateral lower lobes and posteriorly within the lingula and right middle lobe. This is consistent with an infectious bronchiolitis and may be due to aspiration.. Speech therapy has evaluated the patient and will consider a video swallowing Mild diffuse esophageal wall thickening consistent with a nonspecific esophagitis. Although the patient has no complaints of this (3) Foot fracture, left: 2nd to fall; was hospitalized for this about 1 week ago. Multiple fractures are present in the left foot. Continue walking boot. Can bear weight as tolerated in that boot. PT OT evaluation Check vitamin D level in am. (4) Altered mental status: [facility] when he spiked a fever. metabolic encephalopathy 2nd to infection this is cleared with antibiotic use. (5) Abnormal CT of the abdomen: CT abdomen shows Mild thickening throughout the majority of the colon. The colon is fluid-filled. Therefore, this is consistent with a nonspecific colitis and is likely due to an infectious or inflammatory process. No evidence for bowel obstruction, Normal appendix., does not have abdominal pain, diarrhea, etc. Check c. diff if he begins to have loose stools. (6) Abnormal movement of lower extremity: His mother noted shaking of the right arm and right leg for 1-2 hours this AM at [facility]. He was sleepy but awake during this time. He had a concomitant fever at that time as well. EEG just to make sure this was not a focal seizure. The symptoms are not present on my examination 10/21 (7) Cerebellar degeneration: Chronic, awaiting work-up at the [facility] for this. Dr. Barone documented brisk reflexes and upper motor neuron signs when he was consulted at his last admission. My exam findings are similar to Dr. Barone's. Fall precautions. 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 See above. Cont carbidopa-levodopa. (9) Asperger's syndrome: chronic, long-standing. (10) Esophagitis: as noted on CT today. pt's father notes patient has frequent hiccups at home. he also drinks alcohol fairly regularly. start PPI daily. may need endoscopic evaluation after discharge. (11) DVT prophylaxis: lovenox 40mg daily. Spent 35 minuts in management of patient. This included chart review. Subjective Patient continues to feel improved today. He again reports coughing less, He has no nausea or vomiting. Father is at bedside, he explains that he would like to take the patient home instead of rehab. He added a ramp and will have patient live on the first floor so he does not fall. Physical Exam Vital Signs (Past 24 Hours): Last Vital Signs Temp 36.7 C 10/21/18 15:16 Pulse 71 10/21/18 15:16 Resp 18 10/21/18 15:16 BP 102/66 10/21/18 15:16 Pulse Ox 93 10/21/18 15:16 Physical Exam: The patient appeared well nourished and normally developed. His slowed mentation and response Vital signs as documented. Head exam is unremarkable. normocephalic, atraumatic Neck is without jugular venous distension, thyromegaly, or lymphademopathy Lungs are diminished at the bases more clear at the apex Cardiac exam reveals Rhythm is regular. First and second heart sounds normal. Abdominal exam reveals normal bowel sounds, no masses, no organomegaly Extremities are nonedematous and both pedal pulses are present Neurologic exam is A&Ox2, patient has slow mentation and bradykinetic Skin is warm Dry without bruises or lesions (1) Sepsis Sepsis type: sepsis due to unspecified organism Qualified Code(s): A41.9 - S epsis, unspecified organism (2) Altered mental status Altered mental status type: disorientation Qualified Code(s): R41.0 - Disorientation, unspecified (3) Foot fracture, left Encounter type: initial encounter Fracture type: closed Qualified Code(s): S92.902A - Unspecified fracture of left foot, initial encounter for closed fracture (4) Pneumonia Laterality: bilateral Lung location: lower lobe of lung Pneumonia type: due to unspecified organism Qualified Code(s): J18.1 - Lobar pneumonia, unspecified organism
--- NOTE | 2018-10-22 23:54 | Hospitalist Progress Note ---
Date of Service October 22, 2018 Assessment & Plan (1) Sepsis: Suspect pneumonia although ct findings show some colitis, no clinical symptoms Flu testing negative. Send u/a and urine culture. Follow blood cultures. zosyn & azithromax continued is clinically improving Vancomycin stopped as nasal MRSA swab was negative. Patient continues to show improvement each day. (10/22) Will hold discharge due to patient having vomiting, concern if patient may not tolerate oral antibiotics. Anticipate discharge in AM. (2) Pneumonia: Zosyn/zithromax. Was just hospitalized last week so need to cover hospital-acquired pathogens. Negative MRSA swab. CTA . No evidence for pulmonary embolus with limitations as described above. There are tree-in-bud groundglass nodular airspace opacities seen within the bilateral lower lobes and posteriorly within the lingula and right middle lobe. This is consistent with an infectious bronchiolitis and may be due to aspiration.. Speech therapy has evaluated the patient and will consider a video swallowing Mild diffuse esophageal wall thickening consistent with a nonspecific esophagitis. Although the patient has no complaints of this (3) Foot fracture, left: 2nd to fall; was hospitalized for this about 1 week ago. Multiple fractures are present in the left foot. Continue walking boot. Can bear weight as tolerated in that boot. Will discharge patient in AM likely with home health. (4) Altered mental status: [facility] when he spiked a fever. metabolic encephalopathy 2nd to infection this is cleared with antibiotic use. (5) Abnormal CT of the abdomen: CT abdomen shows Mild thickening throughout the majority of the colon. The colon is fluid-filled. Therefore, this is consistent with a nonspecific colitis and is likely due to an infectious or inflammatory process. No evidence for bowel obstruction, Normal appendix., does not have abdominal pain, diarrhea, etc. Check c. diff if he begins to have loose stools. (6) Abnormal movement of lower extremity: His mother noted shaking of the right arm and right leg for 1-2 hours this AM at [facility]. He was sleepy but awake during this time. He had a concomitant fever at that time as well. EEG just to make sure this was not a focal seizure. The symptoms are not present on my examination 10/22 (7) Cerebellar degeneration: Chronic, awaiting work-up at the [facility] for this. Dr. Barone documented brisk reflexes and upper motor neuron signs when he was consulted at his last admission. My exam findings are similar to Dr. Barone's. Fall precautions. 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 See above. Cont carbidopa-levodopa. (9) Asperger's syndrome: chronic, long-standing. (10) Esophagitis: as noted on CT today. pt's father notes patient has frequent hiccups at home. he also drinks alcohol fairly regularly. start PPI daily. may need endoscopic evaluation after discharge. (11) DVT prophylaxis: lovenox 40mg daily. Spent 25 minuts in management of patient. This included chart review. Subjective Patient continues to feel improved today. However this AM patient had nausea and vomited about 200 cc. He again reports coughing less, He has no nausea or vomiting since the even and has tolerated lunch and dinner. Father and mother is at bedside. Physical Exam Vital Signs (Past 24 Hours): Last Vital Signs Temp 36.4 C L 10/22/18 23:39 Pulse 63 10/22/18 23:39 Resp 18 10/22/18 23:39 BP 105/67 10/22/18 23:39 Pulse Ox 92 10/22/18 23:39 Physical Exam: The patient appeared well nourished and normally developed. His slowed mentation and response Vital signs as documented. Head exam is unremarkable. normocephalic, atraumatic Neck is without jugular venous distension, thyromegaly, or lymphademopathy Lungs are diminished at the bases more clear at the apex Cardiac exam reveals Rhythm is regular. First and second heart sounds normal. Abdominal exam reveals normal bowel sounds, no masses, no organomegaly Extremities are nonedematous and both pedal pulses are present Neurologic exam is A&Ox2, patient has slow mentation and bradykinetic Skin is warm Dry without bruises or lesions (1) Sepsis Sepsis type: sepsis due to unspecified organism Qualified Code(s): A41.9 - Sepsis, unspecified organism (2) Altered mental status Altered mental status type: disorientation Qualified Code(s): R41.0 - Disorientation, unspecified (3) Foot fracture, left Encounter type: initial encounter Fracture type: closed Qualified Code(s): S92.902A - Unspecified fracture of left foot, initial encounter for closed fracture (4) Pneumonia Laterality: bilateral Lung location: lower lobe of lung Pneumonia type: due to unspecified organism Qualified Code(s): J18.1 - Lobar pneumonia, unspecified organism
[2018-10-23] MEDS: PIPERACILLIN/TAZOBACTAM 3.375 GM in DEXTROSE 5% 100 ML IV SCH (05:25)
[2018-10-23] MEDS: guaiFENesin SUGAR FREE 200 MG/10 ML UDC PO SCH ×2 (05:25→11:21)
[2018-10-23 07:28] VITALS: PULSE 77; TEMP 98.1; O2SAT 94
[2018-10-23] MEDS: CARBIDOPA/LEVODOPA 25/100MG TAB PO SCH (08:21)
[2018-10-23] MEDS: PROPRANOLOL HCL LA 80 MG CAPCR PO SCH (08:21)
[2018-10-23] MEDS: AZITHROMYCIN 250 MG TAB PO SCH (08:21)
[2018-10-23] MEDS: PANTOprazole 40 MG TAB PO SCH (08:21)
[2018-10-23] MEDS: ENOXAPARIN INJ 40 MG/0.4 ML SYR SQ SCH (08:21)
[2018-10-23 13:37] VITALS: BP 110/68
--- NOTE | 2018-10-28 11:15 | Discharge Summary ---
Date of Service October 23, 2018 Admission HPI Per Admitting Provider 32yo male with h/o autism/Asberger's syndrome, cerebellar degeneration with ataxia and falls, and recent left foot fracture due to a fall. He was recently hospitalized at [facility] for the foot fracture and d/c to [facility] at time of discharge for inpatient rehab. Mother/father were both at bedside and they provided all historical details. He had been progressing at [facility] with his therapies and had a "good day" y day per his parents. He was eating/drinking well, having normal bowel movements, and was at his neurocognitive baseline. Family saw him last evening and was in his usual state of health. Sometime overnight he had an episode of emesis. Then, this am when his mother went to visit him at [facility], she found him altered while sitting in his wheelchair in his room. He would/could not eat, and although his eyes were open and he was awake, his mother stated "he was out of it." His head would slump and his right arm/leg "shook for 2 hours." He was noted to have fever at the time of the arm/leg shaking. He was ultimately sent to [facility] for evaluation. Mother/father report no additional emesis or diarrhea while in the ER. They have heard him cough a few times. His mentation has improved dramatically from this morning. There have been no reports of abdominal pain, dyspnea, dysuria or urinary incontinence, rashes, chest pain, ear pain, sore throat, or other complaints from [place]. His parents have never witnessed aspiration or dysphagia. Principal Diagnosis Nosocomial Pneumonia Discharge Exam The patient appeared well nourished and normally developed. His slowed mentation and response Vital signs as documented. Head exam is unremarkable. normocephalic, atraumatic Neck is without jugular venous distension, thyromegaly, or lymphademopathy Lungs are diminished at the bases more clear at the apex Cardiac exam reveals Rhythm is regular. First and second heart sounds normal. Abdominal exam reveals normal bowel sounds, no masses, no organomegaly Extremities are nonedematous and both pedal pulses are present Neurologic exam is A&Ox2, patient has slow mentation and bradykinetic Skin is warm Dry without bruises or lesions Discharge Data Allergies Allergy/AdvReac Type Severity Reaction Status Date / Time No Known Allergies Allergy Unknown Verified 10/18/18 11:56 Consultations 10/18/18 14:03 ED Decision to Admit Stat Ordered Studies 10/18/18 11:55 CT abd pelvis IV con only Stat CT angio chest PE protocol Stat CT head/brain wo con Stat Hospital Course (1) Sepsis: Suspect pneumonia although ct findings show some colitis, no clinical symptoms Flu testing negative. Send u/a and urine culture. Follow blood cultures. zosyn & azithromax continued is clinically improving Vancomycin stopped as nasal MRSA swab was negative. Patient continues to show improvement each day. (10/22) Will hold discharge due to patient having vomiting, concern if patient may not tolerate oral antibiotics. (October 22) Anticipate discharge in AM. On October 23, patient had not votied for 24 hours. Reports being back at baseline. Family agrees to discharge. (2) Pneumonia: Zosyn/zithromax. Was just hospitalized last week so need to cover hospital-acquired pathogens. Negative MRSA swab. CTA . No evidence for pulmonary embolus with limitations as described above. There are tree-in-bud groundglass nodular airspace opacities seen within the bilateral lower lobes and posteriorly within the lingula and right middle lobe. This is consistent with an infectious bronchiolitis and may be due to aspiration.. Speech therapy has evaluated the patient and will consider a video swallowing Mild diffuse esophageal wall thickening consistent with a nonspecific esophagitis. Although the patient has no complaints of this (3) Foot fracture, left: 2nd to fall; was hospitalized for this about 1 week ago. Multiple fractures are present in the left foot. Continue walking boot. Can bear weight as tolerated in that boot. discharge patient in AM likely with home health. (4) Altered mental status: [facility] when he spiked a fever. metabolic encephalopathy 2nd to infection this is cleared with antibiotic use. (5) Abnormal CT of the abdomen: CT abdomen shows Mild thickening throughout the majority of the colon. The colon is fluid-filled. Therefore, this is consistent with a nonspecific colitis and is likely due to an infectious or inflammatory process. No evidence for bowel obstruction, Normal appendix., does not have abdominal pain, diarrhea, etc. Check c. diff if he begins to have loose stools. (6) Abnormal movement of lower extremity: His mother noted shaking of the right arm and right leg for 1-2 hours this AM at [facility]. He was sleepy but awake during this time. He had a concomitant fever at that time as well. EEG just to make sure this was not a focal seizure. The symptoms are not present on my examination 10/23 (7) Cerebellar degeneration: Chronic, awaiting work-up at the [facility] for this. Dr. Barone documented brisk reflexes and upper motor neuron signs when he was consulted at his last admission. My exam findings are similar to Dr. Barone's. Fall precautions. 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 See above. Cont carbidopa-levodopa. (9) Asperger's syndrome: chronic, long-standing. (10) Esophagitis: as noted on CT today. pt's father notes patient has frequent hiccups at home. he also drinks alcohol fairly regularly. started PPI daily. may need endoscopic evaluation after discharge. (11) DVT prophylaxis: lovenox 40mg daily. Total Time Total Time Spent Total Time Spent (In Minutes): 32 Total Time Includes: Examination of the Patient, Discharge Planning and Medication Reconciliation Discharge Plan Discharge Items Patient Disposition: Home - Self-Care Reason For Visit: FEVER,SEPSIS Discharge Diagnosis: pneumonia Condition: Fair Discharge Goals: Decrease discomfort Activity: Resume your previous activity Non-emergency contact: Primary Care Provider Call non-emergency contact if: you have any medication questions Follow-up/Referrals: Becca Gamble CRNP [Primary Care Provider] - 10/29/18 9:30 am (Please, follow up at [facility] with Becca BURGOS on SaturdayOctober 29 at 9:30 am. *If you need to change this appointment, call the office at [phone].) Diet: Regular Addtl Provider Instructions: Followup with PCP NEXT WEEK. Ortho recommendations... Ice to the left foot, elevation on 1-2 pillows to help with edema. Knee high LAURENCE hose stockings bilaterally while in bed. May partially weightbear with a walker and assist x1. The patient may weight bear with a low tide walking boot for transfers. Prescriptions: New pantoprazole 40 mg Tablet,Delayed Release (Dr/Ec) 40 mg PO BID Qty: 60 RF: 0 Continued propranolol 80 mg capsule,extended release 24 hr 80 mg PO QAM RF: 0 carbidopa-levodopa 25-100 mg tablet 1 tab PO BID RF: 0 acetaminophen [Tylenol] 325 mg Tablet 650 mg PO Q4H PRN (Reason: Pain) RF: 0 sennosides-docusate sodium [Senokot-S] 8.6-50 mg Tablet 1 tab PO DAILY PRN (Reason: Constipation) RF: 0 magnesium hydroxide [Milk of Magnesia] 400 mg/5 mL Suspension 30 ml PO DAILY PRN (Reason: Constipation) RF: 0 bisacodyl 10 mg Suppository 10 mg KS DAILY PRN (Reason: Constipation) RF: 0 docusate sodium 100 mg Capsule 100 mg PO BID RF: 0 polyethylene glycol 3350 [Miralax] 17 gram/dose Powder 17 g PO DAILY PRN (Reason: Constipation) RF: 0 Mucinex DM 30-600 mg Tablet Extended Release 12 Hr 1 tab PO Q12H RF: 0 ondansetron 4 mg Tablet,Disintegrating 4 mg PO Q4H PRN (Reason: Nausea) RF: 0 enoxaparin [Lovenox] 40 mg/0.4 mL Syringe 40 mg subcut DAILY RF: 0 Fleet Enema Extra 19-7 gram/197 mL Enema 118 ml KS DAILY PRN (Reason: Constipation) RF: 0 Stand-Alone Forms: [facility] Discharge Orders: Discharge Order (Routine); Ordered 10/23/18 Ordered By: Logan Canales Admission Data Admit Date/Time: 10/18/18 15:15 Attending Provider: Logan Canales Admit Provider: Mahamed Cantor Primary Care Provider: Becca Gamble Other Providers: Pj Barba Service: Medical Other Interventions: Discharge Summary Assessment (RN) Last Done: 10/23/18 13:35 DC Date/Time DO NOT enter until pt leaves facility: 10/23/18 15:35
== END 2018-10-23 15:35 | disposition home or self-care (01) | DRG 871 ==
LOC: ED 10:21 → SUATTDRO 15:15 → 2S 15:15 → 2W 10-20 15:44
DX: F84.5 Asperger's syndrome; G11.9 Hereditary ataxia, unspecified; G93.41 Metabolic encephalopathy; S92.902A Unspecified fracture of left foot, initial encounter for closed fracture; Z79.899 Other long term (current) drug therapy; K20.9 Esophagitis, unspecified; Z79.01 Long term (current) use of anticoagulants; A41.9 Sepsis, unspecified organism; W19.XXXA Unspecified fall, initial encounter; J18.9 Pneumonia, unspecified organism